=== PATIENT | male | born 1945 | race Caucasian/White ===

== ENCOUNTER → 2016-04-14 | Outpatient (CLI) | payer MEDICARE ==
--- NOTE | 2016-04-14 15:09 | REP ---
LEFT KNEE SERIES: Five views, left knee are performed. There is no acute fracture or dislocation. There is mild medial joint space narrowing. There is mild patellar spurring medially and laterally. There may be a small effusion. IMPRESSION: Mild degenerative changes. Possible small effusion. Signed by Jeremy Vergara MD 04/14/2016 05:23 P
== END ==
LOC: M RAD 14:09
PROVIDERS: ATTEND Family Medicine
DX: M17.12 Unilateral primary osteoarthritis, left knee (principal)
CPT/HCPCS: 73564; G0463

== ENCOUNTER 2016-06-27 05:33 | Emergency (ER) | payer MEDICARE ==
[~2016-06-27] VITALS: Ht 170.2 cm; Wt 98.2 kg
[2016-06-27] MEDS ORDERED: ONDANSETRON 4MG/2ML VIAL (J2405) IV PRN (07:30)
[2016-06-27] MEDS ORDERED: MORPHINE 4 MG/ML 1ML SYRINGE IV ONE (07:30)
[2016-06-27] MEDS ORDERED: NS 500 ML IV ONE (07:30)
[2016-06-27] MEDS ORDERED: PROPOFOL 200 MG/20 ML VIAL IV PRN ×2 (08:00→08:15)
[2016-06-27] MEDS ORDERED: KETAMINE HCL 200 MG/20 ML VIAL IV ONE ×2 (08:00→08:15)
[2016-06-27] MEDS: PROPOFOL 200 MG/20 ML VIAL IV PRN ×9 (08:18→08:45)
[2016-06-27] MEDS ORDERED: LIDOCAINE 2% MDV 20 ML VIAL SC ONE (09:30)
--- NOTE | 2016-06-27 09:30 | REP ---
Left shoulder series: Four views. History: Trauma. Findings: Four views of the left shoulder demonstrate an anterior inferior glenohumeral dislocation. The acromioclavicular joint is normally aligned. There is some cortical irregularity at the inferior margin of the glenoid which may be spurring or conceivably inferior glenoid fracture. No Hill-Sachs fracture is evident. Impression: Anterior inferior glenohumeral dislocation. Spurring versus Bankart fracture at the inferior glenoid. Signed by Kye Blanco MD 06/27/2016 09:55 A
--- NOTE | 2016-06-27 10:05 | REP ---
Portable chest x-ray: Single view. History: Dislocation. Comparison radiographs are from 07:19 a.m. this same date. Findings: There is persistent anterior inferior glenohumeral dislocation on this radiograph. No fracture is evident. Signed by Kye Blanco MD 06/27/2016 09:56 A
[2016-06-27] MEDS ORDERED: PROPOFOL 200 MG/20 ML VIAL IV ONE (10:30)
--- NOTE | 2016-06-27 11:19 | REP ---
Portable view of the shoulder left-sided single view. History: Post reduction. Findings: Single view of the shoulder demonstrates normal alignment of the glenohumeral and acromioclavicular joints. No fracture is seen. Impression: No fracture noted. Glenohumeral joint is reduced. Signed by Kye Blanco MD 06/27/2016 01:14 P
--- NOTE | 2016-06-27 12:48 | REP ---
Portable chest x-ray: Single view. History: Shortness of breath. Findings: Oxygen delivery tubing and EKG monitoring electrodes overlie the chest. The lungs are well inflated and clear. Pleural angles are sharp. Heart is not enlarged. No significant change when compared with the May 18, 2016 study. Impression: No active disease. Signed by Kye Blanco MD 06/27/2016 01:15 P
[2016-06-27 13:02] VITALS: BP 160/90
--- NOTE | 2016-06-28 05:32 | CR ---
DATE OF EMERGENCY ROOM CONSULTATION: 06/27/2016 REFERRING PHYSICIAN: Juhi Thomas MD CHIEF COMPLAINT: Left shoulder pain and deformity. HISTORY OF PRESENT ILLNESS: The patient was intoxicated last evening, injured his shoulder at some point, does not recall when and woke up and presented to the emergency room this morning with pain and deformity about the left shoulder joint. No other complaints, no significant neurologic symptoms in his left upper extremity. PAST MEDICAL HISTORY: He does have multiple comorbidities including chronic pulmonary obstructive disease. PAST SURGICAL HISTORY: Noncontributory. PHYSICAL EXAMINATION: GENERAL: Awake, alert and oriented times three. Well appearing male in no acute distress. He is appropriately dressed and well nourished. HEENT: Head is normocephalic atraumatic. Extraocular muscles intact. LEFT UPPER EXTREMITY: Focus examination of the left upper extremity reveals he has low grade swelling and deformity about the left shoulder joint with a prominent fullness in the anterior shoulder consistent with typical anterior shoulder dislocation. The skin is intact. He endorses full intact sensation throughout his left upper extremity. He has 2+ radial pulse. The fingertips are pink, warm and well perfused and he has grossly intact radial, median ulna and axillary nerve function in the left upper extremity. IMAGING: Initial x-rays and initial post reduction x-rays show an anterior glenohumeral joint dislocation with possible small osseous Bankart component. ASSESSMENT: Left anterior glenohumeral dislocation. PLAN: The emergency staff had performed multiple attempts at close reduction using sedation and told me that they had tried for up to about 30 minutes to close reduce and were unsuccessful. I was then consulted, presented promptly to evaluate the patient. After obtaining a verbal consent, using sterile technique I administered approximately 10 mL of lidocaine anesthetic into the glenohumeral joint with satisfactory effect. Following this, several attempts at closed reduction were performed which were unsuccessful and I consulted with the emergency room physician staff who went forward again with conscious sedation and using conscious sedation with traction and counter-traction and some lateral traction as well, a satisfactory closed reduction was achieved. A solid clunk was appreciated as the glenohumeral joint reduced and the contour of the left shoulder joint returned to normal. Post reduction single AP view shows apparent satisfactory reduction of the glenohumeral joint. Usually additional views would be required to gauge any anterior or posterior subluxation of the glenohumeral joint but he does appear to be well reduced clinically and radiographically at this time. PLAN: As I discussed with the emergency room staff, they monitored him for over one hour. He remained fully neurovascularly intact in the left upper extremity. He will be placed in a sling, discharged to home with appropriate restrictions to protect the left upper extremity and to followup with the orthopedic group in [facility] within a week or so, or earlier as needed for any recurrence of deformity or any other major concern such as signs of neurovascular compromise and he does understand that. All of his questions were answered and he is satisfied with the treatment up to this point. He was much more comfortable after being reduced and did feel that the glenohumeral joint was reduced. cc: Juhi Thomas MD
== END 2016-06-27 13:37 | disposition home or self-care (01) ==
LOC: M ED 08:32
DX: S43.085A Other dislocation of left shoulder joint, initial encounter (principal); W19.XXXA Unspecified fall, initial encounter; Y92.89 Other specified places as the place of occurrence of the external cause; Y93.89 Activity, other specified; Y99.9 Unspecified external cause status
CPT/HCPCS: 23650; 71010; 73020; 73030; 96361; 96372; 96374; 96375; 99152; 99153; 99285; J2405

== ENCOUNTER → 2016-09-22 | Outpatient (REF) | payer MEDICARE ==
[2016-09-22 17:12] LABS: ANION GAP 6 MEQ/L (8-16); BLOOD UREA NITROGEN 24 MG/DL (7-18); CALCIUM LEVEL 9.1 MG/DL (8.8-10.2); CARBON DIOXIDE LEVEL 30 MEQ/L (21-32); CHLORIDE LEVEL 101 MEQ/L (98-107); CREATININE FOR GFR 1.15 MG/DL (0.70-1.30); GLOMERULAR FILTRATION RATE > 60.0 (>42); GLUCOSE, FASTING 98 MG/DL (83-110); POTASSIUM SERUM 4.4 MEQ/L (3.5-5.1); SODIUM LEVEL 137 MEQ/L (136-145)
== END ==
LOC: M LABDRAWP 15:40
PROVIDERS: ATTEND Neuromusculoskeletal Medicine & OMM
DX: Z01.818 Encounter for other preprocedural examination (principal); S46.012D Strain of muscle(s) and tendon(s) of the rotator cuff of left shoulder, subsequent encounter; X58.XXXD Exposure to other specified factors, subsequent encounter; Y92.9 Unspecified place or not applicable; Y93.9 Activity, unspecified; Y99.8 Other external cause status
CPT/HCPCS: 36415; 80048; 93005; G0463

== ENCOUNTER → 2016-10-21 | Outpatient (CLI) | payer MEDICARE ==
--- NOTE | 2016-10-21 17:06 | REP ---
CAROTID ULTRASOUND: Real-time ultrasound evaluation and duplex Doppler interrogation of the extracranial carotid vasculature is performed. There is mild to moderate plaquing and narrowing in both carotid bulbs extending into the internal and external carotid arteries. Luminal narrowing is less than 50%. There is no evidence of hemodynamically significant stenosis of either internal carotid artery. Normal flow velocities are seen. The vertebral arteries demonstrate normal direction of flow. RIGHT LEFT Peak systolic velocity ICA 78.5 cm/s 80.7 cm/s End diastolic velocity ICA 32.1 cm/s 32.7 cm/s Peak systolic velocity CCA 102.6 cm/s 65.7 cm/s Peak systolic velocity ECA 50.7 cm/s 59.4 cm/s ICA/CCA ratio 0.77 1.23 IMPRESSION: Bilateral luminal narrowing of the internal carotid arteries less than 50%. No evidence of hemodynamically significant stenosis. Signed by Jeremy Vergara MD 10/21/2016 04:58 P
== END ==
LOC: M RAD 15:30
PROVIDERS: ATTEND Neuromusculoskeletal Medicine & OMM
DX: Z08 Encounter for follow-up examination after completed treatment for malignant neoplasm (principal); Z86.73 Personal history of transient ischemic attack (TIA), and cerebral infarction without residual deficits

== ENCOUNTER → 2016-11-17 | Outpatient (CLI) | payer MEDICARE ==
[2016-11-17 17:04] LABS: CALCIUM LEVEL 8.7 MG/DL (8.8-10.2); CREATININE FOR GFR 1.27 MG/DL (0.70-1.30); GLOMERULAR FILTRATION RATE 59.7 (>42); POTASSIUM SERUM 4.4 MEQ/L (3.5-5.1)
== END ==
LOC: M LAB 16:14
PROVIDERS: ATTEND Physician Assistant
DX: Z01.818 Encounter for other preprocedural examination (principal); S43.015D Anterior dislocation of left humerus, subsequent encounter; S46.012D Strain of muscle(s) and tendon(s) of the rotator cuff of left shoulder, subsequent encounter; X58.XXXD Exposure to other specified factors, subsequent encounter; Y93.9 Activity, unspecified; Y92.9 Unspecified place or not applicable; Y99.8 Other external cause status

== ENCOUNTER → 2016-12-08 | Outpatient (CLI) | payer MEDICARE ==
[2016-12-08 10:55] LABS: ALBUMIN 3.2 GM/DL (3.2-5.2); ANION GAP 6 MEQ/L (8-16); BLOOD UREA NITROGEN 24 MG/DL (7-18); CALCIUM LEVEL 8.7 MG/DL (8.8-10.2); CARBON DIOXIDE LEVEL 25 MEQ/L (21-32); CHLORIDE LEVEL 102 MEQ/L (98-107); CREATININE FOR GFR 1.17 MG/DL (0.70-1.30); GLOMERULAR FILTRATION RATE > 60.0 (>42); GLUCOSE, FASTING 88 MG/DL (83-110); PHOSPHORUS LEVEL 4.4 MG/DL (2.5-4.9); SODIUM LEVEL 133 MEQ/L (136-145)
[2016-12-08 10:57] LABS: POTASSIUM SERUM 6.4 MEQ/L (3.5-5.1)
== END ==
LOC: M LAB 09:40
PROVIDERS: ATTEND Internal Medicine Cardiovascular Disease
DX: R60.0 Localized edema (principal)

== ENCOUNTER 2019-08-15 12:43 | Inpatient (IN) | payer MEDICARE ==
[~2019-08-15] VITALS: Ht 172.7 cm; Wt 96.1 kg
[2019-08-15 13:18] LABS: BASO % 0.5 % (0.0-1.0); EOS # 0.1 10^3/uL (0.0-0.5); EOS % 1.5 % (0.0-3.0); HEMATOCRIT 47.5 % (42.0-52.0); HEMOGLOBIN 15.5 g/dl (13.5-17.5); LYMPH # 1.1 10^3/uL (1.5-5.0); LYMPH % 17.2 % (24.0-44.0); MEAN CORPUSCULAR HEMOGLOBIN 29.6 pg (27.0-33.0); MEAN CORPUSCULAR HGB CONC 32.6 g/dl (32.0-36.5); MEAN CORPUSCULAR VOLUME 90.6 fl (80.0-96.0); MONO # 0.6 10^3/uL (0.0-0.8); MONO % 8.9 % (0.0-5.0); NEUTROPHILS # 4.7 10^3/uL (1.5-8.5); NEUTROPHILS % 71.4 % (36.0-66.0); PLATELET COUNT, AUTOMATED 204 10^3/uL (150-450); RED BLOOD COUNT 5.24 10^6/uL (4.30-6.10); WHITE BLOOD COUNT 6.5 10^3/uL (4.0-10.0)
[2019-08-15 13:29] LABS: INR 1.12; PROTHROMBIN TIME 14.1 SECONDS (11.8-14.0)
[2019-08-15 13:30] LABS: PARTIAL THROMBOPLASTIN TIME 31.4 SECONDS (25.0-38.4)
[2019-08-15 13:55] LABS: ALBUMIN 3.9 GM/DL (3.2-5.2); ALT/SGPT 31 U/L (12-78); BILIRUBIN,DIRECT 0.2 MG/DL (0.0-0.2); BILIRUBIN,TOTAL 0.6 MG/DL (0.2-1.0); BLOOD UREA NITROGEN 22 MG/DL (7-18); CALCIUM LEVEL 9.3 MG/DL (8.8-10.2); CARBON DIOXIDE LEVEL 26 MEQ/L (21-32); CHLORIDE LEVEL 101 MEQ/L (98-107); CK-MB VALUE MASS < 1.0 NG/ML (<3.6); CPK CREATINE PHOSPHOKINASE 46 U/L (39-308); CREATININE FOR GFR 1.46 MG/DL (0.70-1.30); ETHYL ALCOHOL (ETHANOL) < 0.003 % (0.000-0.010); FREE T4 1.13 NG/DL (0.76-1.46); GLOMERULAR FILTRATION RATE 50.4 (>42); GLUCOSE, FASTING 102 MG/DL (70-100); LIPASE 51 U/L (73-393); MAGNESIUM LEVEL 2.2 MG/DL (1.8-2.4); MB/CK RELATIVE INDEX 2.17 (< OR =4); POTASSIUM SERUM 3.9 MEQ/L (3.5-5.1); SODIUM LEVEL 137 MEQ/L (136-145); TOTAL PROTEIN 7.6 GM/DL (6.4-8.2); TROPONIN I < 0.02 NG/ML (< 0.10)
[2019-08-15] MEDS ORDERED: ISOVUE-370 76% 100ML VIAL As Ordered ONE (14:26)
--- NOTE | 2019-08-15 14:46 | REP ---
CT BRAIN WITHOUT CONTRAST: HISTORY: Syncope. No comparison brain imaging. 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 Bone window settings demonstrate an intact bony calvarium. There is vascular calcification in the distal internal carotid arteries bilaterally. Visualized paranasal sinuses are clear. No intraorbital abnormality is seen. On soft tissue window settings, there is mild generalized volume loss. There are old lacunar infarcts in the left basal ganglia, two in the thalamus and one in the region of the external capsule. There is an old lacunar infarct in the right basal ganglia as well in the posterior superior thalamus. There is also an old lacunar infarct in the periventricular white matter of the left parietal lobe. Mild small vessel changes are present. There is no evidence of acute cortical infarction. IMPRESSION: Multiple old lacunar infarcts in the basal ganglia bilaterally. Left parietal periventricular white matter lacunar infarct also old in appearance. No acute infarct seen. No evidence of hemorrhage or mass. The vascular calcification and generalized volume loss. Electronically Signed by Kye Blanco MD 08/15/2019 03:20 P
--- NOTE | 2019-08-15 14:51 | REP ---
CHEST SINGLE VIEW: Single view of the chest is performed and compared to a prior study of 06/27/2016. There is mild cardiomegaly. The lungs are clear with no evidence of infiltrate. There is calcification and tortuosity of the thoracic aorta. The mediastinal silhouette is unchanged. IMPRESSION: Mild cardiomegaly. No acute pulmonary disease. Electronically Signed by Jeremy Vergara MD 08/15/2019 03:10 P
--- NOTE | 2019-08-15 16:07 | REP ---
CT ABDOMEN AND PELVIS WITH IV CONTRAST: TECHNIQUE: Axial contrast enhanced images from the lung bases to the pubic symphysis using 100 mL Isovue-370 intravenous contrast material with multiplanar reformations. COMPARISON: 06/17/2008 Visualized lung bases demonstrate no infiltrate. The liver and gallbladder appear unremarkable. Spleen is normal in size with no intrinsic abnormality. The adrenal glands demonstrate mild thickening but no suspicious mass. Pancreas demonstrates no mass. Kidneys demonstrate no hydronephrosis or mass. There is atherosclerotic calcification of the abdominal aorta without aneurysm. There is no adenopathy. There is no free air or free fluid. There is no bowel wall thickening or evidence of inflammation. There are multiple left colonic and sigmoid diverticula present without evidence of acute diverticulitis. No pelvic mass is seen. Urinary bladder is not well distended and not well evaluated. There are degenerative changes of the spine. IMPRESSION: Multiple diverticula of the sigmoid and left colon. No acute intra-abdominal or pelvic abnormalities. Electronically Signed by Jeremy Vergara MD 08/15/2019 04:09 P
--- NOTE | 2019-08-15 16:21 | HPEPDOC ---
[facility] Medical History & Physical Date of Admission August 15, 2019 Date of Service: August 15, 2019 Attending Physician: Dominga Price MD History and Physical CHIEF COMPLAINT: Loss of consciousness HISTORY OF PRESENT ILLNESS: Patient is a 74 y/o M with PMH of worsening dementia, HTN, COPD, HLD, colon po lyp, diverticulosis who was brought to [facility] for episode of loss of consciousness. Patient was a poor historian but his daughter Samira, helped given information. This AM, patient came out of the bedroom and he didn't know where he was. This is not completely out of character for him to be confused like this. He stated to see "racks on floors", he thought his daughter's was her boyfriend. He does not usually have hallucination. He was walked out to smoke and later came inside. He took a shower at home but was saying he was "seeing things that weren't there". After shower, the patient was sat down and his body "drooped, head dropped and body went to the side". He lost consciousn ess for approx 20 mins. There was no documented shaking, tongue biting, loss of bowel or bladder. His family says he complained of increased fatigue over the past several days and some nausea after the incident above. He denied chest pain, shortness of breath, vomiting, recent illnesses. He was unresponsive to his family, he was "moaning". 911 was called and he later started waking up. At baseline, patient's mental status waxes and wanes and does not always know where he is or who is around him. It is hard to tell if this is due to blindness or worsening dementia according to family. Associated symptoms include increasing fatigue. The patient does not remember the incident at home. In ER, abnormal VS showed BP 189->200/86-90, pulse 107-128 sinus. He was given 10 mg IV hydralazine with some improvement. He was afebrile and very anxious. He did not remember events and denied any complaints on exam. Neurological exam was wnl for his baseline with blindness. CT head showed multiple old lacunar infarcts in the basal ganglia bilaterally, left parietal periventricular white matter lacunar infarct also old in appearance, no acute infarct seen, no evidence of hemorrhage or mass. He had some mild abdominal tenderness, CT abd/pelvis showed no acute findings. CXR no acute abnormalities, trop neg. Patient was admitted for additional treatment for hypertensive urgency, syncope workup. REVIEW OF SYSTEMS: Patient is an unreliable historian due to memory loss, ? dementia PAST MEDICAL HISTORY: 1. HTN 2. Age related memory loss vs. dementia, worsening since 02/2019 3. COPD 4. Colon polyp 5. Partial blindness bilateral 6. BPH 7. Tobacco use 8. Hx of headaches PAST SURGICAL HISTORY: 1. Appendectomy 2. Cataract surgery FAMILY HISTORY: Father: Prostate cancer, in 70's Mother: Parkinson's disease, in 70's. SOCIAL HISTORY: Smoker 1/2 PPD for 64 years. No alcohol or drug use. PCP is through the [facility], name unknown by doctor. He hasn't seen a doctor in about 4 years. Patient is a full code. HCP is his daughter Samira and his son Juan F Julian ALLERGIES: Please see below. HOME MEDICATIONS: Not on any home meds. PHYSICAL EXAMINATION: CONSTITUTIONAL: No acute distress, resting comfortably, AAO x 2 EYES: PERRLA, EOM intact HENT, MOUTH: Normocephalic, atraumatic, moist mucous membranes, NECK: SUPPLE, no JVD, no lymphadenopathy, no carotid bruit CV: Regular rate and rhythm, S1S2 normal, no murmurs/rubs/gallops RESPIRATORY: Clear to auscultation bilaterally, no rales/rhonchi/wheezes GI: BS positive in 4 quadrants, soft, nontender, nondistended, no rebound or guarding, no organomegaly : Deferred MUSCULOSKELETAL: Normal ROM. No cyanosis, clubbing, swelling, joint deformity, extremity edema INTEGUMENTARY: Intact, no rashes, no lesions, no erythema NEUROLOGIC: Cranial Nerves II-XII are intact, no focal deficits PSYCHIATRIC: Mood and affect are normal LABORATORY DATA: Please see below IMAGING: CT head: multiple old lacunar infarcts in the basal ganglia bilaterally, left parietal periventricular white matter lacunar infarct also old in appearance, no acute infarct seen, no evidence of hemorrhage or mass CXR: mild cardiomegaly. No acute pulmonary disease. ASSESSMENT: 74 y/o M admitted for further workup for hypertensive urgency, syncope. PLAN: 1. Syncope. CT head above, neuro exam neg. LOC for approx 20 mins according to family. F/u echo, carotid doppler, monitor on tele, daily labs, cycle troponin. BP control as below. 2. Hypertensive urgency. Hx of HTN. S/p 10 mg IV hydralazine in ER. Will start on amlodipine 5 mg Po daily, hydralazine PRN for BP >180 mmHg systolic once admitted. Increase scheduled meds if BP sytolic >140 mmHg. 3. Acute kidney injury. Baseline Cr wnl. Starting on gentle IVF hydration, avoid nephrotoxic meds. F/u daily meds. 4. Memory loss, ? dementia. No official diagnosis of dementia, hx of multiple lacunar infarcts on CT head. Redirect whenever possible, very pleasant. 5. BPH. Not on home medications. 6. Tobacco use. Nicotine patch. 7. COPD. Stable on RA. Albuterol PRN. 8. Legally blind. % bilaterally not known. Worsened over years. Stable. 9. Frequent falls at home. Likely due to worsening blindness, ? deconditioning. PT/OT when appropriate. 10. DVT px. Heparin SC. DISPOSITION: Admitted under inpatient status. Will need PT/OT after evaluation complete prior to discharge as he admits to frequent falls at home. Vital Signs Vital Signs Date Time Temp Pulse Resp B/P (MAP) Pulse Ox O2 Delivery O2 Flow Rate FiO2 08/15/19 14:15 98.2 08/15/19 13:45 184/90 (121) 08/15/19 13:43 94 16 100 Room Air Laboratory Data Labs 24H Laboratory Tests 2 08/15/19 12:59: Immature Granulocyte % (Auto) 0.5, Neutrophils (%) (Auto) 71.4H, Lymphocytes (%) (Auto) 17.2L, Monocytes (%) (Auto) 8.9H, Eosinophils (%) (Auto) 1.5, Basophils (%) (Auto) 0.5, Neutrophils # (Auto) 4.7, Lymphocytes # (Auto) 1.1L, Monocytes # (Auto) 0.6, Eosinophils # (Auto) 0.1, Basophils # (Auto) 0.0, Nucleated Red Blood Cells % (auto) 0.0, Prothrombin Time 14.1H, Prothromb Time International Ratio 1.12, Activated Partial Thromboplast Time 31.4, Anion Gap 10, Glomerular Filtration Rate 50.4, Calcium Level 9.3, Magnesium Level 2.2, Total Bilirubin 0.6, Direct Bilirubin 0.2, Aspartate Amino Transf (AST/SGOT) 20, Alanine Aminotransferase (ALT/SGPT) 31, Alkaline Phosphatase 95, Total Creatine Kinase 46, Creatine Kinase MB < 1.0, Creatine Kinase MB Relative Index 2.17, Troponin I < 0.02, Total Protein 7.6, Albumin 3.9, Albumin/Globulin Ratio 1.05, Lipase 51L, Thyroid Stimulating Hormone (TSH) 9.850H, Free Thyroxine 1.13, Ethyl Alcohol Level < 0.003 08/15/19 13:13: Bedside Glucose (Misc Panel) 98 08/15/19 13:49: Urine Color YELLOW, Urine Appearance HAZY, Urine pH 5.0, Urine Specific [place] 1.021, Urine Protein 1+H, Urine Glucose (UA) NEGATIVE, Urine Ketones NEGATIVE, Urine Blood NEGATIVE, Urine Nitrite NEGATIVE, Urine Bilirubin NEGATIVE, Urine Urobilinogen 2.0H, Urine Leukocyte Esterase NEGATIVE, Urine WBC (Auto) 4H, Urine RBC (Auto) 1, Urine Hyaline Casts (Auto) 8, Urine Bacteria (Auto) NEGATIVE, Urine Squamous Epithelial Cells 0, Urine Mucus (Auto) SMALL, Urine Sperm (Auto) CBC/BMP Laboratory Tests 08/15/19 12:59 Home Medications No Active Prescriptions or Reported Meds Allergies Coded Allergies: No Known Allergies (Verified Allergy, Unknown, 08/15/19) A-FIB/CHADSVASC A-FIB History Current/History of A-Fib/PAF?: No Current PO Anticoag Therapy: No Age/Risk Factor Scoring CHADSVASC: CHADSVASC Response (Comments) Value Age Risk Factor Age 65-74 years old 1 Gender Risk Factor Male 0 Hx of CHF No 0 Hx of HTN Yes 1 Hx of Stroke/TIA/or VTE Yes 2 Hx of Diabetes No 0 Hx of Vascular Disease No 0 Total 4 Treatment Treatment ordered: Heparin IV bridge Therapy Dominga Price MD August 15, 2019 16:21
[2019-08-15] MEDS ORDERED: hydrALAZINE 20MG/ML 1ML VIAL (J0360 PER 20MG) IV STA (16:45)
[2019-08-15] MEDS ORDERED: NS 1,000 ML IV SCH (17:15)
[2019-08-15] MEDS ORDERED: amLODIPine 5 MG TAB PO SCH (17:30)
[2019-08-15 18:20] VITALS: BP 190/100
[2019-08-15] MEDS: NICOTINE 21MG/24HR 1 EA TRANSDERMAL TD SCH (18:32)
[2019-08-15 20:00] VITALS: BP 156/76
--- NOTE | 2019-08-15 20:28 | ECGEPIP ---
[facility] - ED Test Date: 2019-08-15 Pat Name: KIMBERLY MARMOLEJO Department: Room: 01[facility] Gender: Male Web Applications Administrator: mireille : 1945 Requested By: AMANDA Brito Order Number: [id number] Reading MD: Juhi Thomas Measurements Intervals [place] Rate: 99 P: 42 WV: 180 QRS: 7 QRSD: 94 T: -1 QT: 324 QTc: 417 Interpretive Statements SINUS RHYTHM NSTTW abnormalities NO PRIOR Electronically Signed on 08-15-2019 20:28:03 EDT by Juhi Thomas
--- NOTE | 2019-08-15 21:07 | REPVR ---
PROCEDURE INFORMATION: Exam: US Duplex Bilateral Extracranial Arteries Exam date and time: 08/15/2019 8:16 PM Age: 74 years old Clinical indication: Syncope and collapse TECHNIQUE: Imaging protocol: Real-time Duplex ultrasound scan of the bilateral carotid and vertebral arteries combining carrera scale, color Doppler and spectral waveform analysis. Bilateral exam. COMPARISON: No relevant prior studies available. FINDINGS: Right common carotid artery: Heterogeneous plaque in the bifurcation and distal CCA. Normal velocities and waveforms. Right internal carotid artery: Heterogeneous plaque in the proximal right ICA. Peak systolic velocity is 74 cm/s. Mildly turbulent flow. Right ICA/CCA ratio: 0.9. Right external carotid artery: Heterogeneous plaque at the origin. Peak systolic velocity is 105 cm/s. Right vertebral artery: Unremarkable. Antegrade flow. Left common carotid artery: Heterogeneous plaque in the bifurcation and distal CCA. Mild plaque in the proximal CCA. Peak systolic velocity is 150 cm/s with mildly turbulent flow. Left internal carotid artery: Heterogeneous plaque in the proximal ICA. Peak systolic velocity is 72 cm/s. Mildly turbulent flow. Left ICA/CCA ratio: 0.6. Left external carotid artery: Plaque at the origin. Normal flow. Left vertebral artery: Unremarkable. Antegrade flow. IMPRESSION: 1. Heterogeneous plaque in the distal CCA and bifurcation extending into the proximal ICAs. Velocities are consistent with the less than 50% stenosis. 2. Antegrade flow in the vertebral arteries. REFERENCES: SRU CRITERIA. The degree of internal carotid artery stenosis is based on criteria defined by the Society of Radiologists in Ultrasound (SRU). Normal is no stenosis. Mild is less than 50% stenosis. Moderate is 50-69% stenosis. Severe is greater than 69% stenosis to near occlusion. Near occlusion is a markedly narrowed lumen. Total occlusion is no detectable patent lumen. Electronically signed by: Rodney Hart On 08/15/2019 21:07:32 PM
[2019-08-15] MEDS: HEPARIN SOD (PORCINE) 5000UNITS/ML VIAL (J1644 PER 1000UNITS) SQ SCH (21:59)
[2019-08-16] VITALS (8 sets, daily range): BP systolic 154–190; BP diastolic 77–102
[2019-08-16] MEDS: hydrALAZINE 20MG/ML 1ML VIAL (J0360 PER 20MG) IV SCH ×3 (00:10→16:02)
[2019-08-16] MEDS ORDERED: ONDANSETRON 4MG/2ML VIAL IV PRN (01:45)
[2019-08-16] MEDS ORDERED: traZODone 50 MG TAB PO ONE (02:00)
[2019-08-16] MEDS: HEPARIN SOD (PORCINE) 5000UNITS/ML VIAL (J1644 PER 1000UNITS) SQ SCH ×3 (05:05→20:51)
[2019-08-16 06:03] LABS: HEMOGLOBIN 15.2 g/dl (13.5-17.5); MEAN CORPUSCULAR HEMOGLOBIN 29.6 pg (27.0-33.0); MEAN CORPUSCULAR VOLUME 89.5 fl (80.0-96.0); PLATELET COUNT, AUTOMATED 213 10^3/uL (150-450); RED BLOOD COUNT 5.14 10^6/uL (4.30-6.10); WHITE BLOOD COUNT 8.6 10^3/uL (4.0-10.0)
[2019-08-16 06:31] LABS: CHOLESTEROL RISK RATIO 3.146 (<5)
[2019-08-16 06:34] LABS: BLOOD UREA NITROGEN 20 MG/DL (7-18); CREATININE FOR GFR 1.25 MG/DL (0.70-1.30); GLUCOSE, FASTING 105 MG/DL (70-100)
[2019-08-16 06:35] LABS: ALBUMIN 3.7 GM/DL (3.2-5.2); ALT/SGPT 39 U/L (12-78); BILIRUBIN,TOTAL 0.7 MG/DL (0.2-1.0); CALCIUM LEVEL 9.4 MG/DL (8.8-10.2); CARBON DIOXIDE LEVEL 26 MEQ/L (21-32); CHLORIDE LEVEL 103 MEQ/L (98-107); GLOMERULAR FILTRATION RATE > 60.0 (>42); POTASSIUM SERUM 3.8 MEQ/L (3.5-5.1); SODIUM LEVEL 136 MEQ/L (136-145); TOTAL PROTEIN 7.9 GM/DL (6.4-8.2)
[2019-08-16] MEDS: NICOTINE 21MG/24HR 1 EA TRANSDERMAL TD SCH (08:32)
[2019-08-16] MEDS ORDERED: amLODIPine 10 MG TAB PO SCH (09:00)
--- NOTE | 2019-08-16 18:18 | IPNPDOC ---
Date Seen The patient was seen on 08/16/19. Progress Note SUBJECTIVE: Agitated and confused today. Has confusion at home, falls often. Fell during day to knee and was put in bed. pt did not hit head. He did not sleep well overnight and this may be contributing to worsening mental status. Needed to ask sitter to be at bedside. Afebrile, labs are unremarkable and patient is on RA so not suspecting metabolic encephalopathy. HR and BP high throughout he day, adjusted BP meds but may require anxiety medications. When examined, patient answers appropriately, follows commands. Denies chest pain, n/v/d, shortness of breath. OBJECTIVE: VITAL SIGNS: Please see below PHYSICAL EXAMINATION: CONSTITUTIONAL: Agitated again on exam but following commands, AAO x 2 EYES: PERRLA HENT, MOUTH: Normocephalic, atraumatic, moist mucous membranes NECK: SUPPLE, no JVD, no lymphadenopathy, no carotid bruit CV: tachycardic, sinus rhythm, S1S2 normal, no murmurs/rubs/gallops RESPIRATORY: Clear to auscultation bilaterally, no rales/rhonchi/wheezes GI: BS positive in 4 quadrants, soft, nontender, nondistended, no rebound or guarding, no organomegaly : Deferred MUSCULOSKELETAL: Normal ROM. No cyanosis, clubbing, swelling, joint deformity, extremity edema INTEGUMENTARY: Intact, no rashes, no lesions, no erythema NEUROLOGIC: No focal deficits PSYCHIATRIC: anxious/agitated LABORATORY DATA: Please see below IMAGING: Echocardiogram pending Carotid US: <50% stenosis bilaterally ASSESSMENT: 74 y/o M admitted for further workup for hypertensive urgency, syncope. PLAN: 1. Worsening AMS likely multifactorial to sleep deprivation, ? dementia in presence of current hospitalization. With hx of age related memory loss or ? dementia, transitions and hospital admissions can cause this. Sitter at bedside, encourage redirection if and whenever possible. Will give trazodone this evening to help patient rest. 2. Sinus tachycardia likely 2/2 to increased agitation/anxiety. UA neg, CXR neg for PNA, afebrile, WBC wnl so not suspicious of infection at this time. D/c amlodipine and add metoprolol tartrate BID with holding parameters. May need antianxiety medications. 3. Syncope 2/2 to possible vasovagal episode, hypertensive urgency. CT head neg, carotid doppler neg, f/u echo, carotid doppler. Neuro checks neg. C/w monitor on tele, daily labs. BP control as below. 4. Hypertensive urgency. Hx of HTN and currently uncontrolled. Not on home medications. Stop CCB and start on BB BID with holding parameters. Can increase S/p 10 mg IV hydralazine in ER. Will start on amlodipine 5 mg Po daily, hydralazine PRN for BP >180 mmHg systolic once admitted. Increase scheduled meds if BP sytolic >140 mmHg. 5. Acute kidney injury likely prerenal etiology. Resolved. 6. Memory loss, ? dementia. No official diagnosis of dementia, hx of multiple lacunar infarcts on CT head. Redirect whenever possible, at baseline very pleasant and normally AAO. 7. BPH. Not on home medications. 8. Tobacco use. Nicotine patch. 9. COPD. Stable on RA. Albuterol PRN. 10. Legally blind. % bilaterally not known. Worsened over years. Stable. 11. Frequent falls at home. Likely due to worsening blindness, ? deconditioning. PT/OT ordered. 10. DVT px. Heparin SC. DISPOSITION: Admitted under inpatient status. Will need PT/OT after evaluation complete prior to discharge as he admits to frequent falls at home. VS, I&O, 24H, [facility] Vital Signs/I&O Vital Signs Date Time Temp Pulse Resp B/P (MAP) Pulse Ox O2 Delivery O2 Flow Rate FiO2 08/16/19 17:37 162/86 (111) 08/16/19 16:00 99.1 126 20 95 Room Air I&O- Last 24 Hours up to 6 AM 08/16/19 05:59 Intake Total 150 ml Output Total 150 ml Balance 0 ml Laboratory Data 24H LABS Laboratory Tests 2 08/16/19 05:15: Nucleated Red Blood Cells % (auto) 0.0, Anion Gap 7L, Glomerular Filtration Rate > 60.0, Estimated Mean Plasma Glucose 126H, Hemoglobin A1c 6.0, Calcium Level 9.4, Total Bilirubin 0.7, Aspartate Amino Transf (AST/SGOT) 13, Alanine Aminotransferase (ALT/SGPT) 39, Alkaline Phosphatase 91, Total Protein 7.9, Albumin 3.7, Albumin/Globulin Ratio 0.88L, Triglycerides Level 53, Total Cholesterol 129, LDL Cholesterol 77, Non-HDL Cholesterol (LDL + VLDL) 88, Total HDL Cholesterol 41, Cholesterol/HDL Ratio 3.146 CBC/BMP Laboratory Tests 08/16/19 05:15 Current Medications Current Medications Medications (Trade) Dose Ordered Sig/Jim Route PRN Reason Start Time Stop Time Status Last Admin Dose Admin Amlodipine Besylate (Norvasc) 5 mg DAILY PO 08/15/19 17:30 08/16/19 08:13 DC 08/15/19 17:32 Amlodipine Besylate (Norvasc) 10 mg DAILY PO 08/16/19 09:00 08/16/19 08:33 Heparin Sodium (Porcine) (Heparin) 5,000 units Q8H SQ 08/15/19 22:00 08/16/19 13:30 Home Med (Med Rec Complete!) ASDIRECTED XX 08/15/19 14:15 08/15/19 14:14 DC Hydralazine HCl (Apresoline) 10 mg Q8H IV 08/16/19 01:00 08/16/19 16:02 Hydralazine HCl (Apresoline) 10 mg STAT STAT IV 08/15/19 16:45 08/15/19 16:46 DC 08/15/19 16:59 Nicotine (Nicoderm Cq 21mg) 1 patch DAILY TD 08/15/19 09:00 08/16/19 08:32 Ondansetron HCl (ZOFRAN INJection) 4 mg Q6HP PRN IV NAUSEA OR VOMITING 08/16/19 01:45 08/16/19 01:58 Sodium Chloride 1,000 ml @ 60 mls/hr [id number] IV 08/15/19 17:15 08/15/19 20:57 DC 08/15/19 18:33 Allergies Coded Allergies: No Known Allergies (Verified Allergy, Unknown, 08/15/19) Dominga Price MD August 16, 2019 18:18
--- NOTE | 2019-08-16 18:20 | ECHO ---
DATE OF PROCEDURE: 08/15/2019 Date of : 1945 Age: 74 Gender: Male Height: 68 inches Weight: 205 pounds Body surface area: 2.07 meters squared Inpatient: Progressive care unit (PCU), room 3218 REFERRING PHYSICIAN: Dr. Dominga Price INDICATION: Syncope. MEASUREMENTS: 2D Measurements: RV: 3.4 cm LV: 4.2 cm Septum: 1.3 cm Posterior wall: 1.3 cm Aortic root: 3.5 cm LA: 4.0 cm LVEF: 65% Doppler Measurements: AV: 1.25 meters per second LVOT: 0.91 meters per second LVOT diameter: 2.0 MV: Unfortunately unable to accurately estimate LV filling velocities due to somewhat rapid rate and superimposition of early and late diastolic filling pattern. PV: 0.6 meters per second Pulmonary artery acceleration time: 77 milliseconds RVSP: 39 mmHg IVC: 1.2 cm COMMENTS: Sinus tachycardia at 110-115 beats per minute (bpm). No intraventricular conduction disturbance. Technically challenging study in light of the patient's body habitus but some diagnostically useful information was still obtained. M-mode and two-dimensional echocardiography was performed with pulsed, continuous wave, color flow and tissue Doppler studies. Mild concentric left ventricular hypertrophy with normal wall motion. Borderline dilated left atrium but unable to assess left ventricular (LV) diastolic function or estimated mean left atrial pressure due to superimposition of early and late diastolic filling velocities with his current sinus tachycardia. Normal right heart chamber sizes and motion with Doppler sign of mild pulmonary hypertension. Normal inferior vena cava (IVC) size and collapse against an elevated central venous pressure. Normal aortic dimensions. Mild aortic valvular sclerosis without stenosis and trace aortic insufficiency. Mild mitral annular calcification without functional valvular abnormality. Normal appearing tricuspid valve with very mild insufficiency. No apparent intracardiac mass or pericardial effusion.
[2019-08-16] MEDS: traZODone 25MG PER 1/2 TABLET PO SCH (20:50)
[2019-08-16] MEDS ORDERED: METOPROLOL TART 12.5 MG PER 1/2 TAB PO SCH (21:00)
[2019-08-17] VITALS: BP 156/80
[2019-08-17] MEDS: hydrALAZINE 20MG/ML 1ML VIAL (J0360 PER 20MG) IV SCH ×3 (00:53→16:15)
[2019-08-17 04:00] VITALS: BP 182/92
[2019-08-17 05:50] LABS: HEMOGLOBIN 14.7 g/dl (13.5-17.5); MEAN CORPUSCULAR HEMOGLOBIN 29.6 pg (27.0-33.0); MEAN CORPUSCULAR HGB CONC 32.7 g/dl (32.0-36.5); MEAN CORPUSCULAR VOLUME 90.7 fl (80.0-96.0); PLATELET COUNT, AUTOMATED 222 10^3/uL (150-450); RED BLOOD COUNT 4.96 10^6/uL (4.30-6.10); WHITE BLOOD COUNT 9.7 10^3/uL (4.0-10.0)
[2019-08-17 06:20] LABS: ALBUMIN 3.8 GM/DL (3.2-5.2); BILIRUBIN,TOTAL 0.7 MG/DL (0.2-1.0); CALCIUM LEVEL 9.3 MG/DL (8.8-10.2); CREATININE FOR GFR 1.32 MG/DL (0.70-1.30); GLOMERULAR FILTRATION RATE 56.6 (>42); POTASSIUM SERUM 4.4 MEQ/L (3.5-5.1); TOTAL PROTEIN 7.2 GM/DL (6.4-8.2)
[2019-08-17] MEDS: HEPARIN SOD (PORCINE) 5000UNITS/ML VIAL (J1644 PER 1000UNITS) SQ SCH ×3 (06:31→21:32)
[2019-08-17 08:00] VITALS: BP 128/63
[2019-08-17] MEDS: NICOTINE 21MG/24HR 1 EA TRANSDERMAL TD SCH (09:09)
[2019-08-17] MEDS: METOPROLOL TART 25 MG TABLET PO SCH ×2 (09:09→21:32)
[2019-08-17 12:00] VITALS: BP 143/88
[2019-08-17 16:00] VITALS: BP 151/78
--- NOTE | 2019-08-17 17:11 | IPNPDOC ---
Date Seen The patient was seen on 08/17/19. Progress Note SUBJECTIVE: Slept well last evening with trazodone, as insomnia was likely causing increased confusion and fall 08/16/19. Increased metoprolol to 25 mg by mouth twice a day for continued tachycardia and hypertension which improved both significantly. The patient participated to his best capability today with physical therapy who states that he would benefit from continued rehabilitation. Denies chest pain, n/v/d, shortness of breath. OBJECTIVE: VITAL SIGNS: Please see below PHYSICAL EXAMINATION: CONSTITUTIONAL: Laying in bed. pleasant, appropriate, following all commands. Confused as to where he is at and why. Oriented to self. EYES: PERRLA HENT, MOUTH: Normocephalic, atraumatic, moist mucous membranes NECK: SUPPLE, no JVD, no lymphadenopathy, no carotid bruit CV: tachycardic, sinus rhythm, S1S2 normal, no murmurs/rubs/gallops RESPIRATORY: Clear to auscultation bilaterally, no rales/rhonchi/wheezes GI: BS positive in 4 quadrants, soft, nontender, nondistended, no rebound or guarding, no organomegaly : Deferred MUSCULOSKELETAL: Normal ROM. No cyanosis, clubbing, swelling, joint deformity, extremity edema INTEGUMENTARY: Intact, no rashes, no lesions, no erythema NEUROLOGIC: No focal deficits PSYCHIATRIC: anxious/agitated LABORATORY DATA: Please see below IMAGING: Echocardiogram- preserved EF Carotid US: <50% stenosis bilaterally ASSESSMENT: 74 y/o M admitted for further workup for unsteady gait, hypertensive urgency, syncope. PLAN: 1. Altered mental status likely 2/2 to sleep deprivation, ? dementia in presence of current hospitalization. Improved significantly after sleeping well throughout the evening. Started trazodone HS, low dose. Sitter at bedside, encourage redirection if and whenever possible. 2. Sinus tachycardia likely 2/2 to increased agitation/anxiety and likely tachycardic at baseline. Started metoprolol tartrate 25 mg PO BID and saw improvement. C/w this treatment and monitor on tele. Is slightly more acclimated to current environment and agitation has settled some since sleeping well last evening. 3. Syncope 2/2 to possible vasovagal episode, hypertensive urgency. No new episodes. CT head neg, carotid doppler neg, f/u echo, carotid doppler. Neuro checks neg. C/w monitor on tele, daily labs. BP control as below. 4. HTN. Better controlled with metoprolol BID. C/w with this treatment. 5. Unsteady gait. One fall 08/16/19 here and admits to frequent falls at home likely due to worsening blindness, ? deconditioning. PT/OT work with patient and states he would benefit from continued rehab services 6. BPH. Not on home medications. 7. Tobacco use. Nicotine patch. 8. COPD. Stable on RA. Albuterol PRN. 9. Legally blind. % bilaterally not known. Worsened over years. Stable. 10. Memory loss, ? dementia. No official diagnosis of dementia, hx of multiple lacunar infarcts on CT head. Redirect whenever possible, at baseline very pleasant and normally AAO. 11. DVT px. Heparin SC. DISPOSITION: Admitted under inpatient status. Pt to continue with PT/OT, would benefit from continued services. Either SW or provider will need to reach out to daughter to determine if home is discharge destination ultimately. Will discuss with team. VS, I&O, 24H, [facility] Vital Signs/I&O Vital Signs Date Time Temp Pulse Resp B/P (MAP) Pulse Ox O2 Delivery O2 Flow Rate FiO2 08/17/19 16:15 151/78 08/17/19 16:00 98.1 90 18 94 Room Air I&O- Last 24 Hours up to 6 AM 08/17/19 05:59 Intake Total 360 ml Output Total 250 ml Balance 110 ml Laboratory Data 24H LABS Laboratory Tests 2 08/17/19 05:30: Nucleated Red Blood Cells % (auto) 0.0, Anion Gap 7L, Glomerular Filtration Rate 56.6, Calcium Level 9.3, Total Bilirubin 0.7, Aspartate Amino Transf (AST/SGOT) 17, Alanine Aminotransferase (ALT/SGPT) 24, Alkaline Phosphatase 87, Total Protein 7.2, Albumin 3.8, Albumin/Globulin Ratio 1.12 CBC/BMP Laboratory Tests 08/17/19 05:30 Current Medications Current Medications Medications (Trade) Dose Ordered Sig/Jim Route PRN Reason Start Time Stop Time Status Last Admin Dose Admin Amlodipine Besylate (Norvasc) 5 mg DAILY PO 08/15/19 17:30 08/16/19 08:13 DC 08/15/19 17:32 Amlodipine Besylate (Norvasc) 10 mg DAILY PO 08/16/19 09:00 08/16/19 18:15 DC 08/16/19 08:33 Heparin Sodium (Porcine) (Heparin) 5,000 units Q8H SQ 08/15/19 22:00 08/17/19 16:20 Home Med (Med Rec Complete!) ASDIRECTED XX 08/15/19 14:15 08/15/19 14:14 DC Hydralazine HCl (Apresoline) 10 mg Q8H IV 08/16/19 01:00 08/17/19 00:53 Hydralazine HCl (Apresoline) 10 mg STAT STAT IV 08/15/19 16:45 08/15/19 16:46 DC 08/15/19 16:59 Metoprolol Tartrate (Lopressor) 12.5 mg BID PO 08/16/19 21:00 08/17/19 07:32 DC 08/16/19 20:52 Metoprolol Tartrate (Lopressor) 25 mg BID PO 08/17/19 09:00 08/17/19 09:09 Nicotine (Nicoderm Cq 21mg) 1 patch DAILY TD 08/15/19 09:00 08/17/19 09:09 Ondansetron HCl (ZOFRAN INJection) 4 mg Q6HP PRN IV NAUSEA OR VOMITING 08/16/19 01:45 08/16/19 01:58 Sodium Chloride 1,000 ml @ 60 mls/hr [id number] IV 08/15/19 17:15 08/15/19 20:57 DC 08/15/19 18:33 Trazodone HCl (Desyrel) 25 mg QHS PO 08/16/19 21:00 08/16/19 20:50 Allergies Coded Allergies: No Known Allergies (Verified Allergy, Unknown, 08/15/19) Dominga Price MD August 17, 2019 17:11
[2019-08-17 20:00] VITALS: BP 152/73
[2019-08-17] MEDS ORDERED: traZODone 25MG PER 1/2 TABLET PO SCH (21:00)
[2019-08-17] MEDS: traZODone 25MG PER 1/2 TABLET PO SCH (21:32)
[2019-08-18] MEDS: hydrALAZINE 20MG/ML 1ML VIAL (J0360 PER 20MG) IV SCH ×3 (01:00→17:00)
[2019-08-18 04:00] VITALS: BP 135/76
[2019-08-18] MEDS: HEPARIN SOD (PORCINE) 5000UNITS/ML VIAL (J1644 PER 1000UNITS) SQ SCH ×3 (05:30→20:32)
[2019-08-18 06:02] LABS: HEMATOCRIT 41.7 % (42.0-52.0); HEMOGLOBIN 13.3 g/dl (13.5-17.5); MEAN CORPUSCULAR HEMOGLOBIN 29.6 pg (27.0-33.0); MEAN CORPUSCULAR HGB CONC 31.9 g/dl (32.0-36.5); MEAN CORPUSCULAR VOLUME 92.9 fl (80.0-96.0); PLATELET COUNT, AUTOMATED 196 10^3/uL (150-450); RED BLOOD COUNT 4.49 10^6/uL (4.30-6.10); WHITE BLOOD COUNT 7.1 10^3/uL (4.0-10.0)
[2019-08-18 06:25] LABS: ALBUMIN 3.3 GM/DL (3.2-5.2); BILIRUBIN,TOTAL 0.4 MG/DL (0.2-1.0); CALCIUM LEVEL 8.8 MG/DL (8.8-10.2); CREATININE FOR GFR 1.26 MG/DL (0.70-1.30); GLOMERULAR FILTRATION RATE 59.7 (>42); TOTAL PROTEIN 6.3 GM/DL (6.4-8.2)
[2019-08-18 08:00] VITALS: BP 148/84
[2019-08-18] MEDS: METOPROLOL TART 25 MG TABLET PO SCH ×2 (08:53→20:31)
[2019-08-18] MEDS: NICOTINE 21MG/24HR 1 EA TRANSDERMAL TD SCH (08:53)
[2019-08-18 11:45] VITALS: BP 142/75
[2019-08-18 14:00] VITALS: BP 159/70
--- NOTE | 2019-08-18 16:57 | IPNPDOC ---
Date Seen The patient was seen on 08/18/19. Progress Note SUBJECTIVE: BP and HR better controlled, AAOx2 at bedside chair today. Resume PT/OT after weekend. We will need to discuss discharge options with daughter after weekend. Denies chest pain, n/v/d, shortness of breath. OBJECTIVE: VITAL SIGNS: Please see below PHYSICAL EXAMINATION: CONSTITUTIONAL: Sitting up in bedside chair following all commands. AAOx2 EYES: PERRLA HENT, MOUTH: Normocephalic, atraumatic, moist mucous membranes NECK: SUPPLE, no JVD, no lymphadenopathy, no carotid bruit CV: NSR S1S2 normal, no murmurs/rubs/gallops RESPIRATORY: Clear to auscultation bilaterally, no rales/rhonchi/wheezes GI: BS positive in 4 quadrants, soft, nontender, nondistended, no rebound or guarding, no organomegaly : Deferred MUSCULOSKELETAL: Normal ROM. No cyanosis, clubbing, swelling, joint deformity, extremity edema INTEGUMENTARY: Intact, no rashes, no lesions, no erythema NEUROLOGIC: No focal deficits PSYCHIATRIC: mood and affect wnl LABORATORY DATA: Please see below IMAGING: No new imaging. ASSESSMENT: 74 y/o M admitted for further workup for unsteady gait, physical deconditioning, hypertension. PLAN: 1. Physical deconditioning with unsteady gait. Blindness likely once factor which complicates unsteadiness. PT/OT will resume after weekend but will benefit from continued rehab services. 2. HTN. Goal BP <150/90 for his age. Better controlled with metoprolol BID. 3. Sinus tachycardia likely 2/2 to increased agitation/anxiety and likely tachycardic at baseline. Improved after increasing to metoprolol tartrate 25 mg PO BID. 4. BPH. Not on home medications. 5. Tobacco use. Nicotine patch. 6. COPD. Stable on RA. Albuterol PRN. 7. Legally blind. % bilaterally not known. Worsened over years. Stable. 8. Memory loss, ? dementia. No official diagnosis of dementia, hx of multiple lacunar infarcts on CT head. Redirect whenever possible, at baseline very pleasant and normally AAO. 9. Insomnia. Trazodone HS. 10. DVT px. Heparin SC. DISPOSITION: Admitted under inpatient status. Pt to continue with PT/OT, would benefit from continued services. Either SW or provider will need to reach out to daughter to determine if home is discharge destination ultimately. VS, I&O, 24H, [facility] Vital Signs/I&O Vital Signs Date Time Temp Pulse Resp B/P (MAP) Pulse Ox O2 Delivery O2 Flow Rate FiO2 08/18/19 14:00 97.0 77 18 159/70 (99) 97 Room Air I&O- Last 24 Hours up to 6 AM 08/18/19 06:00 Intake Total 1200 ml Output Total 550 ml Balance 650 ml Laboratory Data 24H LABS Laboratory Tests 2 08/18/19 05:25: Nucleated Red Blood Cells % (auto) 0.0, Anion Gap 6L, Glomerular Filtration Rate 59.7, Calcium Level 8.8, Total Bilirubin 0.4, Aspartate Amino Transf (AST/SGOT) 16, Alanine Aminotransferase (ALT/SGPT) 23, Alkaline Phosphatase 75, Total Protein 6.3L, Albumin 3.3, Albumin/Globulin Ratio 1.10 CBC/BMP Laboratory Tests 08/18/19 05:25 Current Medications Current Medications Medications (Trade) Dose Ordered Sig/Jim Route PRN Reason Start Time Stop Time Status Last Admin Dose Admin Amlodipine Besylate (Norvasc) 5 mg DAILY PO 08/15/19 17:30 08/16/19 08:13 DC 08/15/19 17:32 Amlodipine Besylate (Norvasc) 10 mg DAILY PO 08/16/19 09:00 08/16/19 18:15 DC 08/16/19 08:33 Heparin Sodium (Porcine) (Heparin) 5,000 units Q8H SQ 08/15/19 22:00 08/18/19 14:25 Home Med (Med Rec Complete!) ASDIRECTED XX 08/15/19 14:15 08/15/19 14:14 DC Hydralazine HCl (Apresoline) 10 mg Q8H IV 08/16/19 01:00 08/17/19 00:53 Hydralazine HCl (Apresoline) 10 mg STAT STAT IV 08/15/19 16:45 08/15/19 16:46 DC 08/15/19 16:59 Metoprolol Tartrate (Lopressor) 12.5 mg BID PO 08/16/19 21:00 08/17/19 07:32 DC 08/16/19 20:52 Metoprolol Tartrate (Lopressor) 25 mg BID PO 08/17/19 09:00 08/18/19 08:53 Nicotine (Nicoderm Cq 21mg) 1 patch DAILY TD 08/15/19 09:00 08/18/19 08:53 Ondansetron HCl (ZOFRAN INJection) 4 mg Q6HP PRN IV NAUSEA OR VOMITING 08/16/19 01:45 08/16/19 01:58 Sodium Chloride 1,000 ml @ 60 mls/hr [id number] IV 08/15/19 17:15 08/15/19 20:57 DC 08/15/19 18:33 Trazodone HCl (Desyrel) 25 mg QHS PO 08/16/19 21:00 08/17/19 21:32 Trazodone HCl (Desyrel) 25 mg QHS PO 08/17/19 21:00 08/17/19 17:13 DC Allergies Coded Allergies: No Known Allergies (Verified Allergy, Unknown, 08/15/19) Dominga Price MD August 18, 2019 16:57
[2019-08-18] MEDS: traZODone 25MG PER 1/2 TABLET PO SCH (21:48)
[2019-08-18 22:00] VITALS: BP 160/75
[2019-08-19] MEDS: hydrALAZINE 20MG/ML 1ML VIAL (J0360 PER 20MG) IV SCH (00:40)
[2019-08-19] MEDS: HEPARIN SOD (PORCINE) 5000UNITS/ML VIAL (J1644 PER 1000UNITS) SQ SCH ×3 (05:37→20:54)
[2019-08-19 06:00] VITALS: BP 162/78
[2019-08-19 06:59] LABS: HEMATOCRIT 42.3 % (42.0-52.0); HEMOGLOBIN 13.8 g/dl (13.5-17.5); MEAN CORPUSCULAR HEMOGLOBIN 30.4 pg (27.0-33.0); MEAN CORPUSCULAR HGB CONC 32.6 g/dl (32.0-36.5); MEAN CORPUSCULAR VOLUME 93.2 fl (80.0-96.0); PLATELET COUNT, AUTOMATED 197 10^3/uL (150-450); RED BLOOD COUNT 4.54 10^6/uL (4.30-6.10); WHITE BLOOD COUNT 6.4 10^3/uL (4.0-10.0)
[2019-08-19 07:23] LABS: ALBUMIN 3.1 GM/DL (3.2-5.2); BILIRUBIN,TOTAL 0.5 MG/DL (0.2-1.0); CALCIUM LEVEL 8.3 MG/DL (8.8-10.2); CREATININE FOR GFR 1.29 MG/DL (0.70-1.30); GLOMERULAR FILTRATION RATE 58.1 (>42); POTASSIUM SERUM 4.5 MEQ/L (3.5-5.1); TOTAL PROTEIN 6.3 GM/DL (6.4-8.2)
[2019-08-19] MEDS: METOPROLOL TART 25 MG TABLET PO SCH ×2 (09:55→20:56)
[2019-08-19] MEDS: NICOTINE 21MG/24HR 1 EA TRANSDERMAL TD SCH (09:55)
[2019-08-19 14:00] VITALS: BP 147/82
[2019-08-19] MEDS ORDERED: SODIUM CHLORIDE NASAL 0.65% SPRAY BTL (OCEAN) PRN (15:30)
--- NOTE | 2019-08-19 17:01 | IPNPDOC ---
Date Seen The patient was seen on 08/19/19. Progress Note SUBJECTIVE: No complaints or issues overnight. Resume PT/OT after weekend. Denies chest pain, n/v/d, shortness of breath. OBJECTIVE: VITAL SIGNS: Please see below PHYSICAL EXAMINATION: CONSTITUTIONAL: Sitting up in bedside chair following all commands. AAOx2 EYES: PERRLA HENT, MOUTH: Normocephalic, atraumatic, moist mucous membranes NECK: SUPPLE, no JVD, no lymphadenopathy, no carotid bruit CV: NSR S1S2 normal, no murmurs/rubs/gallops RESPIRATORY: Clear to auscultation bilaterally, no rales/rhonchi/wheezes GI: BS positive in 4 quadrants, soft, nontender, nondistended, no rebound or guarding, no organomegaly : Deferred MUSCULOSKELETAL: Normal ROM. No cyanosis, clubbing, swelling, joint deformity, extremity edema INTEGUMENTARY: Intact, no rashes, no lesions, no erythema NEUROLOGIC: No focal deficits PSYCHIATRIC: mood and affect wnl LABORATORY DATA: Please see below IMAGING: No new imaging. ASSESSMENT: 74 y/o M admitted for further workup for unsteady gait, physical deconditioning, hypertension. PLAN: 1. Physical deconditioning with unsteady gait. Blindness likely once factor which complicates unsteadiness. PT/OT will resume after weekend but will benefit from continued rehab services. 2. HTN. Goal BP <150/90 for his age. Better controlled with metoprolol BID. 3. Sinus tachycardia likely 2/2 to increased agitation/anxiety and likely tachycardic at baseline. Improved after increasing to metoprolol tartrate 25 mg PO BID. 4. BPH. Not on home medications. 5. Tobacco use. Nicotine patch. 6. COPD. Stable on RA. Albuterol PRN. 7. Legally blind. % bilaterally not known. Worsened over years. Stable. 8. Memory loss, ? dementia. No official diagnosis of dementia, hx of multiple lacunar infarcts on CT head. Redirect whenever possible, at baseline very pleasant and normally AAO. 9. Insomnia. Trazodone HS. 10. DVT px. Heparin SC. DISPOSITION: Admitted under inpatient status. Pt to continue with PT/OT, would benefit from continued services. Either SW or provider will need to reach out to daughter to determine if home is discharge destination ultimately. VS, I&O, 24H, [facility] Vital Signs/I&O Vital Signs Date Time Temp Pulse Resp B/P (MAP) Pulse Ox O2 Delivery O2 Flow Rate FiO2 08/19/19 14:00 98.1 80 18 147/82 (103) 97 Room Air I&O- Last 24 Hours up to 6 AM 08/19/19 06:00 Intake Total 750 ml Output Total 900 ml Balance -150 ml Laboratory Data 24H LABS Laboratory Tests 2 08/19/19 06:45: Nucleated Red Blood Cells % (auto) 0.0, Anion Gap 4L, Glomerular Filtration Rate 58.1, Calcium Level 8.3L, Total Bilirubin 0.5, Aspartate Amino Transf (AST/SGOT) 16, Alanine Aminotransferase (ALT/SGPT) 25, Alkaline Phosphatase 79, Total Protein 6.3L, Albumin 3.1L, Albumin/Globulin Ratio 0.97L CBC/BMP Laboratory Tests 08/19/19 06:45 Current Medications Current Medications Medications (Trade) Dose Ordered Sig/Jim Route PRN Reason Start Time Stop Time Status Last Admin Dose Admin Amlodipine Besylate (Norvasc) 5 mg DAILY PO 08/15/19 17:30 08/16/19 08:13 DC 08/15/19 17:32 Amlodipine Besylate (Norvasc) 10 mg DAILY PO 08/16/19 09:00 08/16/19 18:15 DC 08/16/19 08:33 Heparin Sodium (Porcine) (Heparin) 5,000 units Q8H SQ 08/15/19 22:00 08/19/19 14:33 Home Med (Med Rec Complete!) ASDIRECTED XX 08/15/19 14:15 08/15/19 14:14 DC Hydralazine HCl (Apresoline) 10 mg Q8H IV 08/16/19 01:00 08/19/19 09:10 DC 08/17/19 00:53 Hydralazine HCl (Apresoline) 10 mg STAT STAT IV 08/15/19 16:45 08/15/19 16:46 DC 08/15/19 16:59 Metoprolol Tartrate (Lopressor) 12.5 mg BID PO 08/16/19 21:00 08/17/19 07:32 DC 08/16/19 20:52 Metoprolol Tartrate (Lopressor) 25 mg BID PO 08/17/19 09:00 08/19/19 09:55 Nicotine (Nicoderm Cq 21mg) 1 patch DAILY TD 08/15/19 09:00 08/19/19 09:55 Ondansetron HCl (ZOFRAN INJection) 4 mg Q6HP PRN IV NAUSEA OR VOMITING 08/16/19 01:45 08/16/19 01:58 Sodium Chloride 1,000 ml @ 60 mls/hr [id number] IV 08/15/19 17:15 08/15/19 20:57 DC 08/15/19 18:33 Sodium Chloride ([place] Nasal [place]) 2 spray BID PRN NA NASAL DRYNESS 08/19/19 15:30 Trazodone HCl (Desyrel) 25 mg QHS PO 08/16/19 21:00 08/18/19 21:48 Trazodone HCl (Desyrel) 25 mg QHS PO 08/17/19 21:00 08/17/19 17:13 DC Allergies Coded Allergies: No Known Allergies (Verified Allergy, Unknown, 08/15/19) Dominga Price MD August 19, 2019 17:01
[2019-08-19] MEDS: traZODone 25MG PER 1/2 TABLET PO SCH (20:54)
[2019-08-19 22:00] VITALS: BP 142/88
[2019-08-20] MEDS: HEPARIN SOD (PORCINE) 5000UNITS/ML VIAL (J1644 PER 1000UNITS) SQ SCH ×3 (05:40→21:19)
[2019-08-20 06:00] VITALS: BP 137/83
[2019-08-20 06:55] LABS: HEMATOCRIT 46.7 % (42.0-52.0); HEMOGLOBIN 15.6 g/dl (13.5-17.5); MEAN CORPUSCULAR HEMOGLOBIN 30.1 pg (27.0-33.0); MEAN CORPUSCULAR HGB CONC 33.4 g/dl (32.0-36.5); PLATELET COUNT, AUTOMATED 223 10^3/uL (150-450); RED BLOOD COUNT 5.19 10^6/uL (4.30-6.10); WHITE BLOOD COUNT 6.7 10^3/uL (4.0-10.0)
[2019-08-20 07:11] LABS: BLOOD UREA NITROGEN 22 MG/DL (7-18); CALCIUM LEVEL 8.7 MG/DL (8.8-10.2); CARBON DIOXIDE LEVEL 25 MEQ/L (21-32); CHLORIDE LEVEL 103 MEQ/L (98-107); CREATININE FOR GFR 1.17 MG/DL (0.70-1.30); GLOMERULAR FILTRATION RATE > 60.0 (>42); GLUCOSE, FASTING 95 MG/DL (70-100); POTASSIUM SERUM 4.2 MEQ/L (3.5-5.1); SODIUM LEVEL 134 MEQ/L (136-145)
[2019-08-20] MEDS: METOPROLOL TART 25 MG TABLET PO SCH ×2 (09:00→21:19)
[2019-08-20] MEDS: NICOTINE 21MG/24HR 1 EA TRANSDERMAL TD SCH (09:01)
[2019-08-20 14:00] VITALS: BP 156/67
--- NOTE | 2019-08-20 16:56 | IPNPDOC ---
Date Seen The patient was seen on 08/20/19. Progress Note SUBJECTIVE: No complaints or issues overnight. PT/OT states he would need true 24/7 care to go home safely and avoid a future fall. Patient would benefit from rehab at this time. At times patient is pleasantly confused but always following commands. Gave his daughter and caregiver Samira cho today. She states that at home she takes care of an adult son with special needs in addition to her father. She said her plan was to take her father back home with her if possible. Social work should reach out to her and discuss options that are available to her. Currently the patient denies chest pain, n/v/d, shortness of breath. OBJECTIVE: VITAL SIGNS: Please see below PHYSICAL EXAMINATION: CONSTITUTIONAL: Sitting up in bed following all commands. AAOx2, at times pleasantly confused EYES: PERRLA HENT, MOUTH: Normocephalic, atraumatic, moist mucous membranes NECK: SUPPLE, no JVD, no lymphadenopathy, no carotid bruit CV: NSR S1S2 normal, no murmurs/rubs/gallops RESPIRATORY: Clear to auscultation bilaterally, no rales/rhonchi/wheezes GI: BS positive in 4 quadrants, soft, nontender, nondistended, no rebound or guarding, no organomegaly : Deferred MUSCULOSKELETAL: Normal ROM. No cyanosis, clubbing, swelling, joint deformity, extremity edema INTEGUMENTARY: Intact, no rashes, no lesions, no erythema NEUROLOGIC: No focal deficits PSYCHIATRIC: mood and affect wnl LABORATORY DATA: Please see below IMAGING: No new imaging. ASSESSMENT: 74 y/o M admitted for further workup for unsteady gait, physical deconditioning, hypertension. PLAN: 1. Physical deconditioning with unsteady gait. Blindness likely once factor which complicates unsteadiness. PT/OT states unsafe to return home without 24/7 care. Rehab recommended. This information passed on to daughter. 2. HTN. Goal BP <150/90 for his age. C/w metoprolol BID. 3. BPH. Not on home medications. 4. Tobacco use. Nicotine patch. 5. COPD. Stable on RA. Albuterol PRN. 6. Legally blind. % bilaterally not known. Worsened over years. Stable. 7. Memory loss, ? dementia. No official diagnosis of dementia, hx of multiple lacunar infarcts on CT head. Redirect whenever possible, at baseline very pleasant and normally AAO. 8. Insomnia. Trazodone HS. 9. DVT px. Heparin SC. DISPOSITION: Admitted under inpatient status. Pt to continue with PT/OT, would benefit from continued services. Patient's daughter would like more information on what options would be available for her father's care. I told her SW would be reaching out again to speak with her. VS, I&O, 24H, Fishbone Vital Signs/I&O Vital Signs Date Time Temp Pulse Resp B/P (MAP) Pulse Ox O2 Delivery O2 Flow Rate FiO2 08/20/19 14:00 97.9 107 18 156/67 (96) 97 Room Air I&O- Last 24 Hours up to 6 AM 08/20/19 06:00 Intake Total 690 ml Output Total 1750 ml Balance -1060 ml Laboratory Data 24H LABS Laboratory Tests 2 08/20/19 06:37: Nucleated Red Blood Cells % (auto) 0.0, Anion Gap 6L, Glomerular Filtration Rate > 60.0, Calcium Level 8.7L CBC/BMP Laboratory Tests 08/20/19 06:37 Current Medications Current Medications Medications (Trade) Dose Ordered Sig/Jim Route PRN Reason Start Time Stop Time Status Last Admin Dose Admin Amlodipine Besylate (Norvasc) 5 mg DAILY PO 08/15/19 17:30 08/16/19 08:13 DC 08/15/19 17:32 Amlodipine Besylate (Norvasc) 10 mg DAILY PO 08/16/19 09:00 08/16/19 18:15 DC 08/16/19 08:33 Heparin Sodium (Porcine) (Heparin) 5,000 units Q8H SQ 08/15/19 22:00 08/20/19 15:36 Home Med (Med Rec Complete!) ASDIRECTED XX 08/15/19 14:15 08/15/19 14:14 DC Hydralazine HCl (Apresoline) 10 mg Q8H IV 08/16/19 01:00 08/19/19 09:10 DC 08/17/19 00:53 Hydralazine HCl (Apresoline) 10 mg STAT STAT IV 08/15/19 16:45 08/15/19 16:46 DC 08/15/19 16:59 Metoprolol Tartrate (Lopressor) 12.5 mg BID PO 08/16/19 21:00 08/17/19 07:32 DC 08/16/19 20:52 Metoprolol Tartrate (Lopressor) 25 mg BID PO 08/17/19 09:00 08/20/19 09:00 Nicotine (Nicoderm Cq 21mg) 1 patch DAILY TD 08/15/19 09:00 08/20/19 09:01 Ondansetron HCl (ZOFRAN INJection) 4 mg Q6HP PRN IV NAUSEA OR VOMITING 08/16/19 01:45 08/16/19 01:58 Sodium Chloride 1,000 ml @ 60 mls/hr [id number] IV 08/15/19 17:15 08/15/19 20:57 DC 08/15/19 18:33 Sodium Chloride (Screven Nasal [place]) 2 spray BID PRN NA NASAL DRYNESS 08/19/19 15:30 Trazodone HCl (Desyrel) 25 mg QHS PO 08/16/19 21:00 08/19/19 20:54 Trazodone HCl (Desyrel) 25 mg QHS PO 08/17/19 21:00 08/17/19 17:13 DC Allergies Coded Allergies: No Known Allergies (Verified Allergy, Unknown, 08/15/19) Dominga Price MD August 20, 2019 16:56
[2019-08-20 21:10] VITALS: BP 146/88
[2019-08-20] MEDS: traZODone 25MG PER 1/2 TABLET PO SCH (21:19)
[2019-08-20 22:00] VITALS: BP 142/84
[2019-08-21 06:00] VITALS: BP 145/88
[2019-08-21] MEDS: HEPARIN SOD (PORCINE) 5000UNITS/ML VIAL (J1644 PER 1000UNITS) SQ SCH ×3 (06:01→21:45)
[2019-08-21 06:31] LABS: HEMATOCRIT 42.6 % (42.0-52.0); MEAN CORPUSCULAR HEMOGLOBIN 30.4 pg (27.0-33.0); MEAN CORPUSCULAR HGB CONC 32.9 g/dl (32.0-36.5); MEAN CORPUSCULAR VOLUME 92.4 fl (80.0-96.0); PLATELET COUNT, AUTOMATED 212 10^3/uL (150-450); RED BLOOD COUNT 4.61 10^6/uL (4.30-6.10); WHITE BLOOD COUNT 7.2 10^3/uL (4.0-10.0)
[2019-08-21 06:57] LABS: CALCIUM LEVEL 8.5 MG/DL (8.8-10.2); CREATININE FOR GFR 1.31 MG/DL (0.70-1.30); GLOMERULAR FILTRATION RATE 57.1 (>42); POTASSIUM SERUM 4.9 MEQ/L (3.5-5.1)
[2019-08-21] MEDS: NICOTINE 21MG/24HR 1 EA TRANSDERMAL TD SCH (09:54)
[2019-08-21] MEDS: METOPROLOL TART 25 MG TABLET PO SCH ×2 (09:55→21:45)
--- NOTE | 2019-08-21 11:32 | IPNPDOC ---
Subjective Date Seen The patient was seen on 08/21/19. Subjective Chief Complaint/HPI Patient uses in no distress. Offers no new complaints is being helped by a nursing attending for feeding General: Denies: ROS Unobtainable, Chills, Night Sweats, Fatigue, Malaise, Normal Appetite, Other Symptoms Pulmonary: Denies: Dyspnea, Cough, Pleuritic Chest Pain, Other Symptoms Cardiovascular: Denies: Chest Pain, Palpitations, Orthopnea, Paroxysmal Noc. Dyspnea, Edema, Lt Headedness, Other Symptoms Gastrointestinal: Denies: Nausea, Vomiting, Abdominal Pain, Diarrhea, Constipation, Melena, Hematochezia, Other Symptoms Musculoskeletal: Denies: Neck Pain, Back Pain, Shoulder Pain, Arm Pain, Hand Pain, Leg Pain, Foot Pain, Joint Pain, Muscle Pain, Spasms, Other Symptoms Neurological: Denies: Weakness, Numbness, Incoordination, Change in speech, Confusion, Seizures, Other Symptoms Objective Physical Examination General Exam: Positive: Alert, Cooperative Eye Exam: Positive: PERRLA, Conjunctiva & lids normal Neck Exam: Positive: Supple Chest Exam: Positive: Clear to auscultation, Normal air movement Heart Exam: Positive: Rate Normal, Normal S1, Normal S2 Abdomen Exam: Positive: Normal bowel sounds, Soft Extremity Exam: Positive: Normal pulses Skin Exam: Positive: Nl turgor and temperature Assessment /Plan Problems (1) Physical deconditioning Status: Acute Problem Text: Physical deconditioning with unsteady gait. Blindness likely once factor which complicates unsteadiness. PT/OT states unsafe to return home without 24/7 care. Patient has been cleared from physical therapy standpoint for discharge Once his daughter is available to take him home. 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 Supportive care Continue home meds (3) HTN (hypertension) Status: Chronic Problem Text: Under control, Continue home meds (4) COPD (chronic obstructive pulmonary disease) Status: Chronic Problem Text: Stable continue home meds Plan/VTE VTE Prophylaxis Ordered?: Yes VS, I&O, 24H, Fishbone Vital Signs/I&O Vital Signs Date Time Temp Pulse Resp B/P (MAP) Pulse Ox O2 Delivery O2 Flow Rate FiO2 08/21/19 09:55 100 159/82 08/21/19 06:00 98.3 20 95 Room Air I&O- Last 24 Hours up to 6 AM 08/21/19 06:00 Intake Total 1060 ml Output Total 550 ml Balance 510 ml Laboratory Data 24H LABS Laboratory Tests 2 08/21/19 05:39: Nucleated Red Blood Cells % (auto) 0.0, Anion Gap 4L, Glomerular Filtration Rate 57.1, Calcium Level 8.5L CBC/BMP Laboratory Tests 08/21/19 05:39 NELLIE WILLS MD August 21, 2019 11:32
[2019-08-21 14:00] VITALS: BP 155/84
[2019-08-21] MEDS: traZODone 25MG PER 1/2 TABLET PO SCH (21:45)
[2019-08-21 22:00] VITALS: BP 149/69
[2019-08-22] MEDS: HEPARIN SOD (PORCINE) 5000UNITS/ML VIAL (J1644 PER 1000UNITS) SQ SCH (05:55)
[2019-08-22 06:00] VITALS: BP 146/73
[2019-08-22 06:35] LABS: HEMATOCRIT 41.9 % (42.0-52.0); HEMOGLOBIN 13.4 g/dl (13.5-17.5); MEAN CORPUSCULAR HEMOGLOBIN 29.5 pg (27.0-33.0); MEAN CORPUSCULAR VOLUME 92.3 fl (80.0-96.0); PLATELET COUNT, AUTOMATED 202 10^3/uL (150-450); RED BLOOD COUNT 4.54 10^6/uL (4.30-6.10); WHITE BLOOD COUNT 6.1 10^3/uL (4.0-10.0)
[2019-08-22 06:53] LABS: CALCIUM LEVEL 8.2 MG/DL (8.8-10.2); CREATININE FOR GFR 1.35 MG/DL (0.70-1.30); GLOMERULAR FILTRATION RATE 55.2 (>42); POTASSIUM SERUM 4.8 MEQ/L (3.5-5.1)
[2019-08-22] MEDS: NICOTINE 21MG/24HR 1 EA TRANSDERMAL TD SCH (09:24)
[2019-08-22 09:25] VITALS: BP 128/82
[2019-08-22] MEDS: METOPROLOL TART 25 MG TABLET PO SCH (09:25)
[2019-08-22] MEDS ORDERED: NICO21PAT TD (10:34)
[2019-08-22] MEDS ORDERED: TRAZ-252 PO (10:34)
[2019-08-22] MEDS ORDERED: METO1TAB87 PO (10:34)
[2019-08-22] MEDS ORDERED: FLON1SPR NARES (10:34)
--- NOTE | 2019-08-22 10:39 | DS.PDOC ---
Discharge Summary General Date of Admission August 15, 2019 at 16:25 Date of Discharge 08/22/19 Discharge Summary PROCEDURES PERFORMED DURING STAY: None. ADMITTING DIAGNOSES: 1. Syncope . DISCHARGE DIAGNOSES: 1. Syncope, dementia, physical deconditioning, hypertension, COPD, hyperlipidemia. COMPLICATIONS/CHIEF COMPLAINT: Syncope. HISTORY OF PRESENT ILLNESS: Patient is a 74 y/o M with PMH of worsening dem entia, HTN, COPD, HLD, colon polyp, diverticulosis who was brought to [facility] for episode of loss of consciousness. Patient was a poor historian but his daughter Samira, helped given information. This AM, patient came out of the bedroom and he didn't know where he was. This is not completely out of character for him to be confused like this. He stated to see "racks on floors", he thought his daughter's was her boyfriend. He does not usually have hallucination. He was walked out to smoke and later came inside. He took a shower at home but was saying he was "seeing things that weren't there". After shower, the patient was sat down and his body "drooped, head dropped and body went to the side". He lost consciousness for approx 20 mins. There was no documented shaking, tongue biting, loss of bowel or bladder. His family says he complained of increased fatigue over the past several days and some nausea after the incident above. He denied chest pain, shortness of breath, vomiting, recent illnesses. He was unresponsive to his family, he was "moaning". 911 was called and he later started waking up. At baseline, patient's mental status waxes and wanes and does not always know where he is or who is around him. It is hard to tell if this is due to blindness or worsening dementia according to family. Associated symptoms include increasing fatigue. The patient does not remember the incident at home. In ER, abnormal VS showed BP 189->200/86-90, pulse 107-128 sinus. He was given 10 mg IV hydralazine with some improvement. He was afebrile and very anxious. He did not remember events and denied any complaints on exam. Neurological exam was wnl for his baseline with blindness. CT head showed multiple old lacunar infarcts in the basal ganglia bilaterally, left parietal periventricular white matter lacunar infarct also old in appearance, no acute infarct seen, no evidence of hemorrhage or mass. He had some mild abdominal tenderness, CT abd/pelvis showed no acute findings. CXR no acute abnormalities, trop neg. Patient was admitted for additional treatment for hypertensive urgency, syncope workup. . HOSPITAL COURSE: 74 years old white male was admitted with Physical deconditioning with unsteady gait. Blindness likely once factor which complicates unsteadiness. Physical therapy and occupational therapy evaluations were done and he received support from our physical therapy and occupational therapy departments Patient has been cleared by PT and OT to be discharged home with home care Patient's daughter came today and agreed with the discharge and patient will be discharged home with her 24 hour home care arrangements Continue all current medication as per orders Advised to follow with PCP in 1-2 weeks . DISCHARGE MEDICATIONS: Please see below. ALLERGIES: Please see below. PHYSICAL EXAMINATION ON DISCHARGE: VITAL SIGNS: Please see below. GENERAL: Within normal limits HEENT: PERRLA. Extraocular muscles intact NECK: Supple CARDIOVASCULAR EXAMINATION: S1, S2, regular RESPIRATORY EXAMINATION: Clear to A&P ABDOMINAL EXAMINATION: , Soft, nontender, bowel sounds present EXTREMITIES: No clubbing, cyanosis, edema SKIN: Normal NEUROLOGICAL EXAMINATION: . No focal motor sensory deficit PSYCHIATRIC EXAMINATION: Normal LABORATORY DATA: Please see below. IMAGING: Vascular studies:IMPRESSION: 1. Heterogeneous plaque in the distal CCA and bifurcation extending into the proximal ICAs. Velocities are consistent with the less than 50% stenosis. 2. Antegrade flow in the vertebral arteries. PROGNOSIS: Good ACTIVITY: As tolerated. DIET: As tolerated DISCHARGE PLAN: As per discharge plan DISPOSITION: Home with home care. DISCHARGE INSTRUCTIONS: 1. As per discharge instructions. ITEMS TO FOLLOWUP ON ON OUTPATIENT: 1. Follow with PCP 1-2 weeks. DISCHARGE CONDITION: Stable. TIME SPENT ON DISCHARGE: 35 minutes. Vital Signs/I&Os Vital Signs Date Time Temp Pulse Resp B/P (MAP) Pulse Ox O2 Delivery O2 Flow Rate FiO2 08/22/19 09:25 83 128/82 08/22/19 06:00 97.4 19 95 Room Air I&O- Last 24 Hours up to 6 AM 08/22/19 06:00 Intake Total 1100 ml Output Total 750 ml Balance 350 ml Laboratory Data Labs 24H Laboratory Tests 2 08/22/19 05:59: Nucleated Red Blood Cells % (auto) 0.0, Anion Gap 4L, Glomerular Filtration Rate 55.2, Calcium Level 8.2L CBC/BMP Laboratory Tests 08/22/19 05:59 Discharge Medications Scheduled Fluticasone Propionate (Flonase Allergy Relief) 9.9 Ml [place].susp, 2 SPRAY NARES DAILY Metoprolol Tartrate (Metoprolol Tartrate) 25 Mg Tablet, 25 MG PO BID Nicotine (Nicotine Patch) 21 Mg Patch.td24, 1 PATCH TD DAILY Trazodone HCl (Trazodone HCl) 50 Mg Tablet, 25 MG PO QHS Allergies Coded Allergies: No Known Allergies (Verified Allergy, Unknown, 08/15/19) NELLIE WILLS MD August 22, 2019 10:39
== END 2019-08-22 13:35 | disposition home or self-care (01) | DRG 312 ==
LOC: M ED 12:43 → EDBD 12:43 → M ED INP 16:25 → ENRESERVTM 17:01 → ENRESERVDT 17:01 → M PCU 18:14 → M MSPAV 08-18 11:36
PROVIDERS: ADMIT Internal Medicine; ATTEND Internal Medicine
DX: R55 Syncope and collapse (principal); N17.9 Acute kidney failure, unspecified; F01.51 Vascular dementia, unspecified severity, with behavioral disturbance; I10 Essential (primary) hypertension; J44.9 Chronic obstructive pulmonary disease, unspecified; E78.5 Hyperlipidemia, unspecified; K57.90 Diverticulosis of intestine, part unspecified, without perforation or abscess without bleeding; G47.00 Insomnia, unspecified; I16.0 Hypertensive urgency; H54.8 Legal blindness, as defined in USA; N40.0 Benign prostatic hyperplasia without lower urinary tract symptoms; F17.200 Nicotine dependence, unspecified, uncomplicated; R29.6 Repeated falls; R00.0 Tachycardia, unspecified; R26.81 Unsteadiness on feet; Z86.010 Personal history of colon polyps; Z86.73 Personal history of transient ischemic attack (TIA), and cerebral infarction without residual deficits; Z98.49 Cataract extraction status, unspecified eye; Z90.49 Acquired absence of other specified parts of digestive tract

== ENCOUNTER → 2020-03-05 | Outpatient (CLI) | payer MEDICARE ==
[~2020-03-05] MED LIST: FLON1SPR NARES; METO1TAB87 PO; NICO21PAT TD; TRAZ-252 PO
[2020-03-05 16:47] LABS: ALBUMIN 3.7 GM/DL (3.2-5.2); BILIRUBIN,TOTAL 0.5 MG/DL (0.2-1.0); CALCIUM LEVEL 8.9 MG/DL (8.8-10.2); CREATININE FOR GFR 1.37 MG/DL (0.70-1.30); GLOMERULAR FILTRATION RATE 54.2 (>42); POTASSIUM SERUM 4.4 MEQ/L (3.5-5.1); TOTAL PROTEIN 7.2 GM/DL (6.4-8.2)
[2020-03-05 19:38] LABS: HEMOGLOBIN A1c 6.2 %
== END ==
LOC: M WUC 12:09
PROVIDERS: ATTEND Hospitalist
DX: R73.03 Prediabetes (principal)

== ENCOUNTER → 2020-04-25 | Outpatient (REF) | payer MEDICARE | LOC: M SFHCPLAZ 14:51 | DX: R73.03 Prediabetes (principal) ==

== ENCOUNTER → 2020-05-30 | Outpatient (CLI) | payer MEDICARE ==
[2020-05-30 11:42] LABS: HEMATOCRIT 45.8 % (42.0-52.0); HEMOGLOBIN 14.6 g/dl (13.5-17.5); MEAN CORPUSCULAR HEMOGLOBIN 30.3 pg (27.0-33.0); MEAN CORPUSCULAR HGB CONC 31.9 g/dl (32.0-36.5); PLATELET COUNT, AUTOMATED 208 10^3/uL (150-450); RED BLOOD COUNT 4.82 10^6/uL (4.30-6.10); WHITE BLOOD COUNT 8.5 10^3/uL (4.0-10.0)
[2020-05-30 11:59] LABS: HEMOGLOBIN A1c 5.2 %
[2020-05-30 12:15] LABS: ALBUMIN 3.6 GM/DL (3.2-5.2); BILIRUBIN,TOTAL 0.7 MG/DL (0.2-1.0); CALCIUM LEVEL 9.1 MG/DL (8.8-10.2); CHOLESTEROL RISK RATIO 3.78 (<5); CREATININE FOR GFR 1.42 MG/DL (0.70-1.30); POTASSIUM SERUM 4.8 MEQ/L (3.5-5.1); TOTAL PROTEIN 7.1 GM/DL (6.4-8.2)
== END ==
LOC: M WUC 10:00
PROVIDERS: ATTEND Hospitalist
DX: R73.03 Prediabetes (principal); Z79.899 Other long term (current) drug therapy

== ENCOUNTER 2021-10-09 20:04 | Inpatient (IN) | payer MEDICARE ==
[~2021-10-09] VITALS: Ht 172.7 cm; Wt 74.7 kg
[2021-10-09] MEDS ORDERED: FLOM0.4C39 PO (20:15)
[2021-10-09] MEDS ORDERED: NS 1,000 ML IV ONE (21:40)
[2021-10-09 21:57] LABS: BASO % 0.2 % (0.0-1.0); HEMATOCRIT 41.1 % (42.0-52.0); HEMOGLOBIN 13.8 g/dl (13.5-17.5); LYMPH # 0.8 10^3/uL (1.5-5.0); LYMPH % 4.8 % (24.0-44.0); MEAN CORPUSCULAR HEMOGLOBIN 30.3 pg (27.0-33.0); MEAN CORPUSCULAR HGB CONC 33.6 g/dl (32.0-36.5); MEAN CORPUSCULAR VOLUME 90.3 fl (80.0-96.0); MONO % 6.3 % (2.0-8.0); NEUTROPHILS # 14.5 10^3/uL (1.5-8.5); NEUTROPHILS % 87.9 % (36.0-66.0); PLATELET COUNT, AUTOMATED 189 10^3/uL (150-450); RED BLOOD COUNT 4.55 10^6/uL (4.30-6.10); WHITE BLOOD COUNT 16.4 10^3/uL (4.0-10.0)
[2021-10-09 23:21] LABS: ALBUMIN 3.3 GM/DL (3.2-5.2); BILIRUBIN,DIRECT 0.4 MG/DL (0.0-0.2); BILIRUBIN,TOTAL 1.4 MG/DL (0.2-1.0); CALCIUM LEVEL 8.9 MG/DL (8.8-10.2); CREATININE FOR GFR 1.4 MG/DL (0.70-1.30); GLOMERULAR FILTRATION RATE 52.6 (>42); POTASSIUM SERUM 3.8 MEQ/L (3.5-5.1); TOTAL PROTEIN 6.4 GM/DL (6.4-8.2)
[2021-10-10 00:51] LABS: RSV AMPLIFICATION NEGATIVE (NEGATIVE)
[2021-10-10] MEDS ORDERED: ONDANSETRON 4MG 2ML VIAL IV ONE (01:15)
[2021-10-10] MEDS ORDERED: TRAZ-252 PO (01:30)
[2021-10-10] MEDS ORDERED: HOME MED LIST COMPLETE! XX SCH (01:35)
[2021-10-10] MEDS ORDERED: KETOROLAC 30 MG/ML 1ML VIAL IV ONE (02:00)
[2021-10-10] MEDS ORDERED: MAALOX 30 ML SUSP *UDC PO ONE (02:00)
[2021-10-10] MEDS ORDERED: cefTRIAXone SOD 1 GM in D5W MINI-BAG PLUS 50 ML IV ONE (02:00)
[2021-10-10] MEDS ORDERED: MAALOX 30 ML SUSP *UDC PO PRN (02:30)
[2021-10-10] MEDS ORDERED: MOM 30ML SUSPENSION UDC PO PRN ×2 (02:30→08:25)
[2021-10-10] MEDS ORDERED: LABETALOL 100MG/20ML VIAL IV STA (02:36)
[2021-10-10] MEDS: traZODone 25MG PER 1/2 TABLET PO SCH ×2 (03:27→22:27)
[2021-10-10 04:30] VITALS: BP 172/79
[2021-10-10] MEDS: NS 1,000 ML IV SCH ×2 (04:46→13:30)
[2021-10-10 05:46] LABS: BASO % 0.1 % (0.0-1.0); EOS % 0.2 % (0.0-3.0); HEMATOCRIT 36.4 % (42.0-52.0); HEMOGLOBIN 12.5 g/dl (13.5-17.5); LYMPH # 1.1 10^3/uL (1.5-5.0); LYMPH % 6.7 % (24.0-44.0); MEAN CORPUSCULAR HEMOGLOBIN 30.8 pg (27.0-33.0); MEAN CORPUSCULAR HGB CONC 34.3 g/dl (32.0-36.5); MEAN CORPUSCULAR VOLUME 89.7 fl (80.0-96.0); MONO # 1.2 10^3/uL (0.0-0.8); MONO % 7.3 % (2.0-8.0); NEUTROPHILS # 14.2 10^3/uL (1.5-8.5); NEUTROPHILS % 84.8 % (36.0-66.0); PLATELET COUNT, AUTOMATED 160 10^3/uL (150-450); RED BLOOD COUNT 4.06 10^6/uL (4.30-6.10); WHITE BLOOD COUNT 16.8 10^3/uL (4.0-10.0)
[2021-10-10 06:13] LABS: ALBUMIN 2.8 GM/DL (3.2-5.2); BILIRUBIN,TOTAL 1.4 MG/DL (0.2-1.0); CALCIUM LEVEL 8.7 MG/DL (8.8-10.2); CREATININE FOR GFR 1.29 MG/DL (0.70-1.30); GLOMERULAR FILTRATION RATE 57.8 (>42); POTASSIUM SERUM 3.3 MEQ/L (3.5-5.1); THYROID STIMULATING HORMONE 1.79 uIU/ML (0.358-3.740); TOTAL PROTEIN 6.2 GM/DL (6.4-8.2)
[2021-10-10] MEDS ORDERED: POTASSIUM CHLORIDE 10MEQ SR TABLET PO ONE (07:05)
[2021-10-10 07:42] LABS: MAGNESIUM LEVEL 1.7 MG/DL (1.8-2.4)
[2021-10-10 08:32] VITALS: BP 108/59
[2021-10-10] MEDS: SENOKOT S TAB PO SCH ×2 (08:57→22:26)
[2021-10-10] MEDS: TAMSULOSIN 0.4 MG CAP PO SCH (08:57)
[2021-10-10] MEDS: LACTOBACILLUS ACIDOPHILUS CAP (BACID) PO SCH ×2 (08:57→18:51)
[2021-10-10] MEDS: HEPARIN SOD (PORCINE) 5000UNITS/ML 1ML VIAL/SYRINGE SC SCH ×2 (08:58→22:27)
[2021-10-10 11:39] VITALS: BP 180/90
[2021-10-10 12:00] VITALS: BP 170/70
[2021-10-10] MEDS ORDERED: MAG SULF 1GM/100ML (MAG RUN) 1 GM in IV 1 EA IV ONE (12:00)
[2021-10-10] MEDS ORDERED: amLODIPine 5 MG TAB PO SCH (13:15)
[2021-10-10 15:48] VITALS: BP 179/77
[2021-10-10 20:00] VITALS: BP 173/81
[2021-10-10] MEDS: LABETALOL 100MG/20ML VIAL IV SCH (23:47)
[2021-10-11] VITALS: BP 146/78
[2021-10-11] MEDS: cefTRIAXone SOD 1 GM in D5W MINI-BAG PLUS 50 ML IV SCH (00:37)
[2021-10-11 04:00] VITALS: BP 131/70
[2021-10-11] MEDS: LABETALOL 100MG/20ML VIAL IV SCH (04:24)
[2021-10-11 05:43] LABS: BASO % 0.3 % (0.0-1.0); EOS % 0.5 % (0.0-3.0); HEMATOCRIT 36.8 % (42.0-52.0); HEMOGLOBIN 11.9 g/dl (13.5-17.5); LYMPH # 0.6 10^3/uL (1.5-5.0); LYMPH % 7.8 % (24.0-44.0); MEAN CORPUSCULAR HEMOGLOBIN 29.5 pg (27.0-33.0); MEAN CORPUSCULAR HGB CONC 32.3 g/dl (32.0-36.5); MEAN CORPUSCULAR VOLUME 91.1 fl (80.0-96.0); MONO # 0.6 10^3/uL (0.0-0.8); MONO % 8.1 % (2.0-8.0); NEUTROPHILS # 6.4 10^3/uL (1.5-8.5); NEUTROPHILS % 82.8 % (36.0-66.0); PLATELET COUNT, AUTOMATED 155 10^3/uL (150-450); RED BLOOD COUNT 4.04 10^6/uL (4.30-6.10); WHITE BLOOD COUNT 7.7 10^3/uL (4.0-10.0)
[2021-10-11 06:09] LABS: ALBUMIN 2.5 GM/DL (3.2-5.2); ALT/SGPT 14 U/L (12-78); BILIRUBIN,TOTAL 0.5 MG/DL (0.2-1.0); BLOOD UREA NITROGEN 13 MG/DL (7-18); CARBON DIOXIDE LEVEL 23 MEQ/L (21-32); CHLORIDE LEVEL 106 MEQ/L (98-107); CREATININE FOR GFR 1.22 MG/DL (0.70-1.30); GLOMERULAR FILTRATION RATE > 60.0 (>42); GLUCOSE, FASTING 97 MG/DL (70-100); MAGNESIUM LEVEL 2.1 MG/DL (1.8-2.4); POTASSIUM SERUM 4.5 MEQ/L (3.5-5.1); SODIUM LEVEL 136 MEQ/L (136-145); TOTAL PROTEIN 5.6 GM/DL (6.4-8.2)
[2021-10-11] MEDS ORDERED: BISACODYL 10 MG SUPP PR ONE (07:55)
[2021-10-11 08:00] VITALS: BP 119/87
[2021-10-11] MEDS: HEPARIN SOD (PORCINE) 5000UNITS/ML 1ML VIAL/SYRINGE SC SCH ×2 (09:00→22:24)
[2021-10-11] MEDS ORDERED: PREVNAR 13 VACCINE SYRINGE IM.IMMUN ONE (09:00)
[2021-10-11] MEDS: SENOKOT S TAB PO SCH ×2 (09:00→21:00)
[2021-10-11] MEDS: LACTOBACILLUS ACIDOPHILUS CAP (BACID) PO SCH ×2 (09:00→17:39)
[2021-10-11] MEDS: TAMSULOSIN 0.4 MG CAP PO SCH (09:00)
[2021-10-11] MEDS: CARVedilol 6.25 MG TAB PO SCH ×2 (09:00→21:00)
[2021-10-11 12:00] VITALS: BP 135/64
[2021-10-11 20:00] VITALS: BP 137/67
[2021-10-11] MEDS: ACETAMINOPHEN TAB 650MG DOSE (2X325MG) PO PRN (20:27)
[2021-10-11] MEDS: traZODone 25MG PER 1/2 TABLET PO SCH (21:00)
[2021-10-11 23:52] VITALS: BP 117/59
[2021-10-12] MEDS: cefTRIAXone SOD 1 GM in D5W MINI-BAG PLUS 50 ML IV SCH (01:06)
[2021-10-12 04:02] VITALS: BP 139/65
[2021-10-12 05:30] LABS: BASO % 0.5 % (0.0-1.0); EOS # 0.1 10^3/uL (0.0-0.5); EOS % 1.9 % (0.0-3.0); HEMATOCRIT 36.4 % (42.0-52.0); LYMPH # 0.9 10^3/uL (1.5-5.0); LYMPH % 20.4 % (24.0-44.0); MEAN CORPUSCULAR HEMOGLOBIN 30.5 pg (27.0-33.0); MEAN CORPUSCULAR VOLUME 92.4 fl (80.0-96.0); MONO # 0.6 10^3/uL (0.0-0.8); MONO % 13.5 % (2.0-8.0); NEUTROPHILS # 2.7 10^3/uL (1.5-8.5); PLATELET COUNT, AUTOMATED 158 10^3/uL (150-450); RED BLOOD COUNT 3.94 10^6/uL (4.30-6.10); WHITE BLOOD COUNT 4.2 10^3/uL (4.0-10.0)
[2021-10-12 05:59] LABS: ALBUMIN 2.4 GM/DL (3.2-5.2); BILIRUBIN,TOTAL 0.7 MG/DL (0.2-1.0); CALCIUM LEVEL 8.1 MG/DL (8.8-10.2); CREATININE FOR GFR 1.32 MG/DL (0.70-1.30); GLOMERULAR FILTRATION RATE 56.3 (>42); POTASSIUM SERUM 4.5 MEQ/L (3.5-5.1); TOTAL PROTEIN 5.7 GM/DL (6.4-8.2)
[2021-10-12 07:26] VITALS: BP 136/66
[2021-10-12] MEDS: LACTOBACILLUS ACIDOPHILUS CAP (BACID) PO SCH ×2 (08:57→17:04)
[2021-10-12] MEDS: TAMSULOSIN 0.4 MG CAP PO SCH (08:58)
[2021-10-12] MEDS: HEPARIN SOD (PORCINE) 5000UNITS/ML 1ML VIAL/SYRINGE SC SCH ×2 (08:58→21:13)
[2021-10-12] MEDS: SENOKOT S TAB PO SCH ×2 (08:58→21:14)
[2021-10-12] MEDS: CARVedilol 6.25 MG TAB PO SCH ×2 (08:58→21:13)
[2021-10-12] MEDS: CEFDINIR 300 MG CAP (OMNICEF) PO SCH ×2 (10:21→21:13)
[2021-10-12] MEDS: ACETAMINOPHEN TAB 650MG DOSE (2X325MG) PO PRN (10:39)
[2021-10-12 20:00] VITALS: BP 117/59
[2021-10-12] MEDS: traZODone 25MG PER 1/2 TABLET PO SCH (21:00)
[2021-10-13 05:29] LABS: BASO % 0.6 % (0.0-1.0); EOS # 0.1 10^3/uL (0.0-0.5); EOS % 4.3 % (0.0-3.0); HEMATOCRIT 34.9 % (42.0-52.0); HEMOGLOBIN 11.6 g/dl (13.5-17.5); LYMPH # 0.8 10^3/uL (1.5-5.0); LYMPH % 24.8 % (24.0-44.0); MEAN CORPUSCULAR HEMOGLOBIN 29.4 pg (27.0-33.0); MEAN CORPUSCULAR HGB CONC 33.2 g/dl (32.0-36.5); MEAN CORPUSCULAR VOLUME 88.4 fl (80.0-96.0); MONO # 0.4 10^3/uL (0.0-0.8); MONO % 13.2 % (2.0-8.0); NEUTROPHILS # 1.9 10^3/uL (1.5-8.5); NEUTROPHILS % 56.8 % (36.0-66.0); PLATELET COUNT, AUTOMATED 172 10^3/uL (150-450); RED BLOOD COUNT 3.95 10^6/uL (4.30-6.10); WHITE BLOOD COUNT 3.3 10^3/uL (4.0-10.0)
[2021-10-13 06:03] LABS: ALBUMIN 2.2 GM/DL (3.2-5.2); ALT/SGPT 19 U/L (12-78); BILIRUBIN,TOTAL 0.6 MG/DL (0.2-1.0); BLOOD UREA NITROGEN 18 MG/DL (7-18); CALCIUM LEVEL 7.7 MG/DL (8.8-10.2); CARBON DIOXIDE LEVEL 26 MEQ/L (21-32); CHLORIDE LEVEL 103 MEQ/L (98-107); CREATININE FOR GFR 0.95 MG/DL (0.70-1.30); GLOMERULAR FILTRATION RATE > 60.0 (>42); GLUCOSE, FASTING 87 MG/DL (70-100); MAGNESIUM LEVEL 1.9 MG/DL (1.8-2.4); POTASSIUM SERUM 4.9 MEQ/L (3.5-5.1); SODIUM LEVEL 133 MEQ/L (136-145); TOTAL PROTEIN 4.9 GM/DL (6.4-8.2)
[2021-10-13 08:08] VITALS: BP 120/56
[2021-10-13] MEDS: SENOKOT S TAB PO SCH ×3 (09:00→20:30)
[2021-10-13] MEDS: CEFDINIR 300 MG CAP (OMNICEF) PO SCH ×2 (09:52→20:28)
[2021-10-13] MEDS: HEPARIN SOD (PORCINE) 5000UNITS/ML 1ML VIAL/SYRINGE SC SCH ×2 (09:52→20:28)
[2021-10-13] MEDS: LACTOBACILLUS ACIDOPHILUS CAP (BACID) PO SCH ×2 (09:52→17:57)
[2021-10-13] MEDS: CARVedilol 6.25 MG TAB PO SCH ×2 (09:54→20:29)
[2021-10-13] MEDS: TAMSULOSIN 0.4 MG CAP PO SCH (09:54)
[2021-10-13 20:00] VITALS: BP 126/66
[2021-10-13] MEDS: traZODone 25MG PER 1/2 TABLET PO SCH (20:28)
[2021-10-14 03:55] LABS: BASO % 0.5 % (0.0-1.0); EOS # 0.2 10^3/uL (0.0-0.5); EOS % 4.9 % (0.0-3.0); HEMATOCRIT 34.9 % (42.0-52.0); HEMOGLOBIN 11.4 g/dl (13.5-17.5); LYMPH # 1.5 10^3/uL (1.5-5.0); LYMPH % 35.4 % (24.0-44.0); MEAN CORPUSCULAR HEMOGLOBIN 29.8 pg (27.0-33.0); MEAN CORPUSCULAR HGB CONC 32.7 g/dl (32.0-36.5); MEAN CORPUSCULAR VOLUME 91.1 fl (80.0-96.0); MONO # 0.7 10^3/uL (0.0-0.8); MONO % 16.6 % (2.0-8.0); NEUTROPHILS # 1.8 10^3/uL (1.5-8.5); NEUTROPHILS % 42.1 % (36.0-66.0); PLATELET COUNT, AUTOMATED 180 10^3/uL (150-450); RED BLOOD COUNT 3.83 10^6/uL (4.30-6.10); WHITE BLOOD COUNT 4.3 10^3/uL (4.0-10.0)
[2021-10-14 04:22] LABS: ALBUMIN 2.3 GM/DL (3.2-5.2); ALT/SGPT 21 U/L (12-78); BILIRUBIN,TOTAL 0.3 MG/DL (0.2-1.0); BLOOD UREA NITROGEN 15 MG/DL (7-18); CALCIUM LEVEL 7.8 MG/DL (8.8-10.2); CARBON DIOXIDE LEVEL 28 MEQ/L (21-32); CHLORIDE LEVEL 105 MEQ/L (98-107); CREATININE FOR GFR 1.18 MG/DL (0.70-1.30); GLOMERULAR FILTRATION RATE > 60.0 (>42); GLUCOSE, FASTING 97 MG/DL (70-100); POTASSIUM SERUM 4.9 MEQ/L (3.5-5.1); SODIUM LEVEL 137 MEQ/L (136-145); TOTAL PROTEIN 5.1 GM/DL (6.4-8.2)
[2021-10-14 07:37] VITALS: BP 147/70
[2021-10-14] MEDS: SENOKOT S TAB PO SCH (08:34)
[2021-10-14] MEDS: TAMSULOSIN 0.4 MG CAP PO SCH (08:38)
[2021-10-14 08:39] VITALS: BP 147/70
[2021-10-14] MEDS: CARVedilol 6.25 MG TAB PO SCH (08:39)
[2021-10-14] MEDS: LACTOBACILLUS ACIDOPHILUS CAP (BACID) PO SCH (08:39)
[2021-10-14] MEDS: HEPARIN SOD (PORCINE) 5000UNITS/ML 1ML VIAL/SYRINGE SC SCH (08:39)
[2021-10-14] MEDS: CEFDINIR 300 MG CAP (OMNICEF) PO SCH (08:39)
[2021-10-14] MEDS ORDERED: CARV6.25 PO (10:45)
[2021-10-14] MEDS ORDERED: CEFD300CAP PO (10:45)
== END 2021-10-14 14:21 | disposition home health service (06) | DRG 872 ==
LOC: M ED 20:04 → M ED INP 10-10 02:22 → ENRESERV 10-10 03:51 → M PCU 10-10 04:29
PROVIDERS: ADMIT Family Medicine; ATTEND Family Medicine
DX: A41.9 Sepsis, unspecified organism (principal); N39.0 Urinary tract infection, site not specified; N17.9 Acute kidney failure, unspecified; N18.31 Chronic kidney disease, stage 3a; F03.90 Unspecified dementia, unspecified severity, without behavioral disturbance, psychotic disturbance, mood disturbance, and anxiety; N40.0 Benign prostatic hyperplasia without lower urinary tract symptoms; K21.9 Gastro-esophageal reflux disease without esophagitis; I12.9 Hypertensive chronic kidney disease with stage 1 through stage 4 chronic kidney disease, or unspecified chronic kidney disease; F32.A Depression, unspecified; M19.90 Unspecified osteoarthritis, unspecified site; H54.8 Legal blindness, as defined in USA; Z90.49 Acquired absence of other specified parts of digestive tract; Z87.891 Personal history of nicotine dependence; B96.20 Unspecified Escherichia coli [E. coli] as the cause of diseases classified elsewhere; E80.6 Other disorders of bilirubin metabolism; R53.1 Weakness; K59.09 Other constipation; Z20.822 Contact with and (suspected) exposure to COVID-19; Z79.899 Other long term (current) drug therapy; Z91.14 Patient's other noncompliance with medication regimen; R65.20 Severe sepsis without septic shock; E87.6 Hypokalemia; E83.42 Hypomagnesemia; G47.00 Insomnia, unspecified

== ENCOUNTER → 2021-10-30 | Outpatient (REF) | payer MEDICARE ==
[~2021-10-30] MED LIST changes: +CARV6.25 PO; +CEFD300CAP PO; +FLOM0.4C39 PO
[2021-10-30 18:30] LABS: HEMATOCRIT 35.5 % (42.0-52.0); HEMOGLOBIN 11.4 g/dl (13.5-17.5); MEAN CORPUSCULAR HEMOGLOBIN 30.2 pg (27.0-33.0); MEAN CORPUSCULAR HGB CONC 32.1 g/dl (32.0-36.5); MEAN CORPUSCULAR VOLUME 93.9 fl (80.0-96.0); PLATELET COUNT, AUTOMATED 242 10^3/uL (150-450); RED BLOOD COUNT 3.78 10^6/uL (4.30-6.10); WHITE BLOOD COUNT 5.5 10^3/uL (4.0-10.0)
[2021-10-30 19:33] LABS: FREE T4 0.93 NG/DL (0.76-1.46)
[2021-10-30 20:50] LABS: VITAMIN B12 LEVEL 294 PG/ML (247-911)
[2021-10-30 20:52] LABS: FOLATE 5.3 NG/ML (>5.4)
== END ==
LOC: M SHH 17:13
PROVIDERS: ATTEND Student in an Organized Health Care Education/Training Program
DX: R41.0 Disorientation, unspecified (principal); R19.5 Other fecal abnormalities

== ENCOUNTER → 2021-11-06 | Outpatient (REF) | payer MEDICARE ==
[2021-11-06 17:26] LABS: APPEARANCE, URINE CLEAR (CLEAR); BACTERIA, URINE AUTO NEGATIVE (NEGATIVE); BILIRUBIN, URINE AUTO NEGATIVE (NEGATIVE); BLOOD, URINE BLOOD NEGATIVE (NEGATIVE); COLOR, URINE YELLOW (YELLOW); GLUCOSE, URINE (UA) AUTO NEGATIVE (NEGATIVE); KETONE, URINE AUTO NEGATIVE (NEGATIVE); LEUKOCYTE ESTERASE, URINE AUTO NEGATIVE (NEGATIVE); MUCUS, URINE SMALL (NEGATIVE); NITRITE, URINE AUTO NEGATIVE (NEGATIVE); PROTEIN, URINE AUTO NEGATIVE (NEGATIVE); RBC, URINE AUTO 0 /HPF (0-3); SPECIFIC GRAVITY URINE AUTO 1.021 (1.002-1.035); SQUAMOUS EPITHELIAL CELL UR AU 0 /HPF (0-6); UROBILINOGEN, URINE AUTO 0.2 mg/dL (0.0-2.0); WBC, URINE AUTO 0 /HPF (0-3)
== END ==
LOC: M SMT 16:49
PROVIDERS: ATTEND Nurse Practitioner Women's Health
DX: N39.0 Urinary tract infection, site not specified (principal)

== ENCOUNTER 2021-12-18 15:19 | Emergency (ER) | payer MEDICARE ==
[~2021-12-18] VITALS: Ht 165.1 cm; Wt 76.4 kg
[2021-12-18 19:04] LABS: BASO % 0.3 % (0.0-1.0); EOS # 0.1 10^3/uL (0.0-0.5); EOS % 1.8 % (0.0-3.0); HEMATOCRIT 42.2 % (42.0-52.0); HEMOGLOBIN 13.7 g/dl (13.5-17.5); LYMPH # 0.9 10^3/uL (1.5-5.0); LYMPH % 14.1 % (24.0-44.0); MEAN CORPUSCULAR HEMOGLOBIN 30.2 pg (27.0-33.0); MEAN CORPUSCULAR HGB CONC 32.5 g/dl (32.0-36.5); MEAN CORPUSCULAR VOLUME 93.2 fl (80.0-96.0); MONO # 0.8 10^3/uL (0.0-0.8); MONO % 12.3 % (2.0-8.0); NEUTROPHILS # 4.8 10^3/uL (1.5-8.5); NEUTROPHILS % 71.2 % (36.0-66.0); PLATELET COUNT, AUTOMATED 200 10^3/uL (150-450); RED BLOOD COUNT 4.53 10^6/uL (4.30-6.10); WHITE BLOOD COUNT 6.7 10^3/uL (4.0-10.0)
[2021-12-18 19:28] LABS: CREATININE FOR GFR 1.4 MG/DL (0.70-1.30); GLOMERULAR FILTRATION RATE 52.6 (>42); POTASSIUM SERUM 4.7 MEQ/L (3.5-5.1)
[2021-12-18] MEDS ORDERED: NS 1,000 ML IV ONE (19:45)
[2021-12-18] MEDS ORDERED: MAGNESIUM CITRATE 300 ML BTL PO ONE (20:20)
[2021-12-18] MEDS ORDERED: DULC10SU2 PR (20:47)
[2021-12-18 20:56] VITALS: BP 140/76
== END 2021-12-18 22:12 | disposition home or self-care (01) ==
LOC: M ED 15:19
DX: K59.00 Constipation, unspecified (principal); E86.0 Dehydration; F03.90 Unspecified dementia, unspecified severity, without behavioral disturbance, psychotic disturbance, mood disturbance, and anxiety; Z79.899 Other long term (current) drug therapy

== ENCOUNTER 2022-01-30 14:35 | Inpatient (IN) | payer MEDICARE ==
[~2022-01-30] VITALS: Ht 167.6 cm; Wt 155.6 kg
[~2022-01-30 14:35] MED LIST changes: +DULC10SU2 PR
[2022-01-30] MEDS ORDERED: NS 500 ML IV ONE (15:10)
[2022-01-30] MEDS ORDERED: ISOVUE-370 76% 100ML VIAL As Ordered ONE (15:29)
[2022-01-30 15:39] LABS: BASO % 0.4 % (0.0-1.0); EOS # 0.2 10^3/uL (0.0-0.5); EOS % 3.4 % (0.0-3.0); HEMATOCRIT 42.1 % (42.0-52.0); HEMOGLOBIN 13.7 g/dl (13.5-17.5); LYMPH # 1.5 10^3/uL (1.5-5.0); LYMPH % 20.9 % (24.0-44.0); MEAN CORPUSCULAR HEMOGLOBIN 30.6 pg (27.0-33.0); MEAN CORPUSCULAR HGB CONC 32.5 g/dl (32.0-36.5); MEAN CORPUSCULAR VOLUME 94.2 fl (80.0-96.0); MONO # 0.7 10^3/uL (0.0-0.8); MONO % 9.8 % (2.0-8.0); NEUTROPHILS # 4.5 10^3/uL (1.5-8.5); NEUTROPHILS % 65.1 % (36.0-66.0); PLATELET COUNT, AUTOMATED 184 10^3/uL (150-450); RED BLOOD COUNT 4.47 10^6/uL (4.30-6.10)
[2022-01-30 15:56] LABS: INR 1.03; PROTHROMBIN TIME 13.7 SECONDS (12.5-14.5)
[2022-01-30 15:57] LABS: PARTIAL THROMBOPLASTIN TIME 29.9 SECONDS (24.8-34.2)
[2022-01-30 16:11] LABS: RSV AMPLIFICATION NEGATIVE (NEGATIVE)
[2022-01-30 16:17] LABS: CK-MB VALUE MASS < 1.0 NG/ML (<3.6); CPK CREATINE PHOSPHOKINASE 82 U/L (39-308); MB/CK RELATIVE INDEX 1.22 (< OR =4)
[2022-01-30 16:23] LABS: ACETAMINOPHEN LEVEL < 2.0 UG/ML (10.0-30.0); ALBUMIN 3.3 GM/DL (3.2-5.2); ALT/SGPT 20 U/L (12-78); BILIRUBIN,DIRECT < 0.1 MG/DL (0.0-0.2); BILIRUBIN,TOTAL 0.6 MG/DL (0.2-1.0); BLOOD UREA NITROGEN 35 MG/DL (7-18); CALCIUM LEVEL 8.8 MG/DL (8.8-10.2); CARBON DIOXIDE LEVEL 23 MEQ/L (21-32); CHLORIDE LEVEL 106 MEQ/L (98-107); CREATININE FOR GFR 1.42 MG/DL (0.70-1.30); ETHYL ALCOHOL (ETHANOL) < 0.003 % (0.000-0.010); GLOMERULAR FILTRATION RATE 51.7 (>42); GLUCOSE, FASTING 100 MG/DL (70-100); POTASSIUM SERUM 5.4 MEQ/L (3.5-5.1); SALICYLATE LEVEL < 1.7 MG/DL (5.0-30.0); SODIUM LEVEL 137 MEQ/L (136-145); TOTAL PROTEIN 6.9 GM/DL (6.4-8.2)
[2022-01-30] MEDS ORDERED: CARV3.12 PO (16:26)
[2022-01-30] MEDS ORDERED: FINA5TAB2 PO (16:26)
[2022-01-30] MEDS ORDERED: PARO5TAB PO (16:26)
[2022-01-30] MEDS ORDERED: TRAZ-257 PO (16:26)
[2022-01-30] MEDS ORDERED: ASPI81TA26 PO (16:26)
[2022-01-30] MEDS ORDERED: HOME MED LIST COMPLETE! XX SCH (16:30)
[2022-01-30 17:29] LABS: CK-MB VALUE MASS < 1.0 NG/ML (<3.6); CPK CREATINE PHOSPHOKINASE 21 U/L (39-308); MB/CK RELATIVE INDEX 4.76 (< OR =4)
[2022-01-30] MEDS ORDERED: LIDOCAINE 2% 5ML JELLY UROJET TOP ONE (17:45)
[2022-01-30 20:05] LABS: AMPHETAMINES LEVEL URINE NEGATIVE (NEGATIVE); BARBITURATES URINE NEGATIVE (NEGATIVE); BENZODIAZEPINES URINE NEGATIVE (NEGATIVE); CANNABINOIDS URINE NEGATIVE (NEGATIVE); COCAINE METABOLITE URINE NEGATIVE (NEGATIVE); METHADONE URINE NEGATIVE (NEGATIVE); OPIATES URINE NEGATIVE (NEGATIVE); PHENCYCLIDINE URINE NEGATIVE (NEGATIVE)
[2022-01-30 20:33] LABS: CK-MB VALUE MASS < 1.0 NG/ML (<3.6); CPK CREATINE PHOSPHOKINASE 46 U/L (39-308); MB/CK RELATIVE INDEX 2.17 (< OR =4)
[2022-01-30] MEDS ORDERED: ASPIRIN 81 MG CHEW TABLET PO SCH (21:00)
[2022-01-31 07:24] LABS: BILIRUBIN,TOTAL 0.5 MG/DL (0.2-1.0); CALCIUM LEVEL 8.5 MG/DL (8.8-10.2); CREATININE FOR GFR 1.25 MG/DL (0.70-1.30); FREE T4 1.03 NG/DL (0.76-1.46); GLOMERULAR FILTRATION RATE 59.9 (>42); POTASSIUM SERUM 4.6 MEQ/L (3.5-5.1); TOTAL PROTEIN 6.2 GM/DL (6.4-8.2)
[2022-01-31] MEDS: TAMSULOSIN 0.4 MG CAP PO SCH (09:10)
[2022-01-31] MEDS: CARVedilol 3.125 MG TAB PO SCH ×2 (09:10→22:08)
[2022-01-31] MEDS: FINASTERIDE 5MG TAB PO SCH (09:10)
[2022-01-31] MEDS: HEPARIN SOD (PORCINE) 5000UNITS/ML 1ML VIAL/SYRINGE SC SCH ×2 (09:11→22:09)
[2022-01-31] MEDS ORDERED: ASPIRIN 81 MG CHEW TABLET PO SCH (18:00)
[2022-01-31 18:56] VITALS: BP 144/78
[2022-01-31 20:00] VITALS: BP 118/71
[2022-01-31] MEDS ORDERED: PARoxetine 10MG TABLET PO SCH (21:00)
[2022-02-01] MEDS ORDERED: traZODone 100 MG TAB PO ONE (01:00)
[2022-02-01 06:00] VITALS: BP 157/85
[2022-02-01 07:26] LABS: BASO % 0.3 % (0.0-1.0); EOS # 0.2 10^3/uL (0.0-0.5); EOS % 3.6 % (0.0-3.0); HEMATOCRIT 37.5 % (42.0-52.0); HEMOGLOBIN 12.5 g/dl (13.5-17.5); LYMPH # 1.5 10^3/uL (1.5-5.0); LYMPH % 24.5 % (24.0-44.0); MEAN CORPUSCULAR HEMOGLOBIN 30.8 pg (27.0-33.0); MEAN CORPUSCULAR HGB CONC 33.3 g/dl (32.0-36.5); MEAN CORPUSCULAR VOLUME 92.4 fl (80.0-96.0); MONO # 0.7 10^3/uL (0.0-0.8); MONO % 11.5 % (2.0-8.0); NEUTROPHILS # 3.6 10^3/uL (1.5-8.5); NEUTROPHILS % 59.8 % (36.0-66.0); PLATELET COUNT, AUTOMATED 188 10^3/uL (150-450); RED BLOOD COUNT 4.06 10^6/uL (4.30-6.10); WHITE BLOOD COUNT 6.1 10^3/uL (4.0-10.0)
[2022-02-01 08:03] LABS: BLOOD UREA NITROGEN 26 MG/DL (7-18); CALCIUM LEVEL 8.6 MG/DL (8.8-10.2); CARBON DIOXIDE LEVEL 24 MEQ/L (21-32); CHLORIDE LEVEL 106 MEQ/L (98-107); CREATININE FOR GFR 1.18 MG/DL (0.70-1.30); GLOMERULAR FILTRATION RATE > 60.0 (>42); GLUCOSE, FASTING 100 MG/DL (70-100); POTASSIUM SERUM 4.5 MEQ/L (3.5-5.1); SODIUM LEVEL 135 MEQ/L (136-145)
[2022-02-01] MEDS ORDERED: FLUBLOK(EGG FREE)(QUAD)INFLUENZA VACC 0.5ML SYRINGE 18YRS & OLDER IM.IMMUN ONE (09:00)
[2022-02-01] MEDS: FINASTERIDE 5MG TAB PO SCH (09:33)
[2022-02-01 09:34] VITALS: BP 157/85
[2022-02-01] MEDS: TAMSULOSIN 0.4 MG CAP PO SCH (09:34)
[2022-02-01] MEDS: CARVedilol 3.125 MG TAB PO SCH (09:34)
[2022-02-01] MEDS: HEPARIN SOD (PORCINE) 5000UNITS/ML 1ML VIAL/SYRINGE SC SCH (09:35)
[2022-02-01] MEDS ORDERED: ASPI325T56 PO (11:58)
[2022-02-01] MEDS ORDERED: ASPI81TA26 PO (12:03)
[2022-02-01] MEDS ORDERED: ATOR1TAB19 PO (12:04)
[2022-02-01 12:30] LABS: CHOLESTEROL LEVEL 140 MG/DL (<200); CHOLESTEROL RISK RATIO 4.666 (<5); HDL CHOLESTEROL 30 MG/DL (>40); LDL CHOLESTEROL 90 MG/DL (<100); NON-HDL-C 110 MG/DL; TRIGLYCERIDES LEVEL 100 MG/DL (<150)
== END 2022-02-01 14:12 | disposition home or self-care (01) | DRG 312 ==
LOC: EDBD 14:35 → M ED 14:35 → M ED INP 17:53 → ENRESERV 01-31 17:14 → M MSPAV 01-31 18:43
PROVIDERS: ADMIT Internal Medicine Nephrology; ATTEND Internal Medicine Nephrology
DX: I95.1 Orthostatic hypotension (principal); I63.81 Other cerebral infarction due to occlusion or stenosis of small artery; R64 Cachexia; C34.12 Malignant neoplasm of upper lobe, left bronchus or lung; I12.9 Hypertensive chronic kidney disease with stage 1 through stage 4 chronic kidney disease, or unspecified chronic kidney disease; N18.31 Chronic kidney disease, stage 3a; I27.20 Pulmonary hypertension, unspecified; F03.90 Unspecified dementia, unspecified severity, without behavioral disturbance, psychotic disturbance, mood disturbance, and anxiety; I65.23 Occlusion and stenosis of bilateral carotid arteries; K21.9 Gastro-esophageal reflux disease without esophagitis; J43.9 Emphysema, unspecified; K57.30 Diverticulosis of large intestine without perforation or abscess without bleeding; I71.41 Pararenal abdominal aortic aneurysm, without rupture; N40.0 Benign prostatic hyperplasia without lower urinary tract symptoms; D35.00 Benign neoplasm of unspecified adrenal gland; F32.A Depression, unspecified; H54.8 Legal blindness, as defined in USA; Z79.82 Long term (current) use of aspirin; Z79.899 Other long term (current) drug therapy; K59.00 Constipation, unspecified